=== PATIENT | female | born 1990 | race Caucasian/White ===

== ENCOUNTER 2023-09-13 08:32 | Inpatient (IN) ==
[2023-09-13 09:14] LABS: Basophils # (auto) 0.06 K/uL (0.00-0.20); Basophils % (auto) 0.9 %; Eosinophils # (auto) 0.78 K/uL (0.00-0.50); Eosinophils % (auto) 11.9 %; Hematocrit (blood only) 41.1 % (37.0-47.0); Hemoglobin 13.4 g/dl (12.0-16.0); Immature Granulocytes # (auto) 0.02 K/uL (0.01-0.20); Immature Granulocytes % (auto) 0.3 %; Lymphocytes # (auto) 1.52 K/uL (1.20-3.40); Lymphocytes % (auto) 23.1 %; Mean Corpuscular Hemoglobin 28.3 pg (25.0-34.0); Mean Corpuscular Hgb Conc 32.6 g/dL (32.0-36.0); Mean Corpuscular Volume 86.9 fL (80.0-100.0); Mean Platelet Volume 9.9 fL (9.4-12.4); Monocytes # (auto) 0.47 K/uL (0.11-0.59); Monocytes % (auto) 7.2 %; Neutrophils # (auto) 3.72 K/uL (1.40-6.50); Neutrophils % (auto) 56.6 %; Platelet Count 213 K/uL (130-400); RDW Coefficient of Variation 13.2 % (11.5-14.5); Red Blood Count 4.73 M/uL (4.20-5.40); White Blood Count 6.57 K/ul (4.8-10.8)
--- NOTE | 2023-09-13 09:16 | XRay Report ---
XR chest 1V portable HISTORY: 33 years-old Female Chest pain, nonspecific COMPARISON: None TECHNIQUE: AP view of the chest FINDINGS: Right apical pneumothorax with pleural separation of 2.6 cm. Cardiomediastinal and hilar silhouettes are within normal limits. No pleural effusion, airspace consolidation or pulmonary edema. The bones a ppear grossly intact. IMPRESSION: Right apical pneumothorax demonstrates pleural separation of 2.6 cm. ACT 112: Negative or not required by law. The above report was generated using voice recognition software. It may contain grammatical, syntax o r spelling errors. Electronically signed by: Neri Brock M.D. 09/13/2023 9:15 AM
[2023-09-13 09:30] LABS: Alanine Aminotransferase 5 U/L (7-52); Albumin Globulin Ratio 1.4 (0.9-2); Albumin Level 4.3 gm/dl (3.4-5.0); Alkaline Phosphatase 39 U/L (34-104); Anion Gap 5 (3-11); Aspartate Aminotransferase 16 U/L (13-39); BUN Creatinine Ratio 11.8 (10-20); Bilirubin,Total 0.6 mg/dl (0.2-1.0); Blood Urea Nitrogen 8 mg/dl (6-23); Calcium 9.2 mg/dl (8.6-10.3); Carbon Dioxide 28 mmol/L (21-32); Chloride 104 mmol/L (98-107); Creatinine Clr Calc Pharmacy 99.9 ml/min; Est GFR (African American) 132.3 ml/min; Est GFR (Non-African American) 114.1 ml/min; Globulin 3.1 gm/dl (2.5-4.0); Glucose 93 mg/dl (70-99(Fasting)); Lipase 19 U/L (11-82); Potassium 4.3 mmol/L (3.5-5.1); Sodium 137 mmol/L (136-145); Total Protein 7.4 gm/dl (6.0-8.3)
[2023-09-13 09:36] LABS: Troponin I High Sensitivity < 2.3 pg/ml (0-14)
--- NOTE | 2023-09-13 10:06 | Emergency Department Note ---
Impression & Plan Pneumothorax, right, S/P laparoscopic hysterectomy, Asthma, Endometriosis ED Provider Note NAME: RICA TANNER AGE: 33 SEX: F : 1990 ARRIVES VIA: Walk-In INFORMANT: Patient, ED PROVIDER(S): Girma Ayala MD CHIEF COMPLAINT: Right-sided chest pain HPI: This is a 33-year-old female history of asthma, endometriosis presenting for right chest pain. Patient notes that this pain is worse with deep inspiration. There is no dyspnea or shortness of breath noted. She notes that she recently had a hysterectomy on Sunday, 4 days ago. She notes that she had an IV in her right arm and it was now bruising. Because of the pain with deep this patient she was concerned for a blood clotting. She notes that he has a right breast cyst which to this pain feels significantly different from. She has no nausea, vomiting, diarrhea, fever, chills. ROS: See above HPI for pertinent positives & negatives. A total of 10 systems reviewed and were otherwise negative. PHYSICAL EXAMINATION: General: resting comfortably in no acute distress Head: Normocephalic and atraumatic Eyes: Normal inspection, extraocular muscles intact Ear, nose, throat: Normal external exam Neck: Normal range of motion Respiratory: lungs clear to auscultation bilaterally Cardiovascular: Regular rate/rhythm, no murmur GI: soft, nontender, no guarding or rebound Extremities: nontender, moves all extremities Neuro: The patient awake and alert, appropriately conversive, no focal deficits, symmetric faces Skin: Warm, dry, and intact MEDICAL DECISION MAKING: This is a 33-year-old female with history of asthma and endometriosis senting for right-sided chest pain. Recent surgery, hysterectomy. -Chest x-ray independent interpreted by me as a right apical pneumothorax, small, without pleural effusion or focal opacity -Discussed care with Dr. Machado, ICU/pulmonology, who recommends 6 hours observation with oxygen for repeat chest x-ray; based on size of pneumothorax and clinical stability with reassuring vital signs and lack of shortness of breath/hypoxia. -At this time she is resting comfortably, updated patient and about plan who are comfortable with this. patient on nonrebreather -After 6 hours, chest x-ray repeated which x-ray shows moderate worsening of the pneumothorax. Now about 3 cm. Discussed case again with Dr. Machado, who will help assist with apical approach to chest tube. -Discussed risk/benefits of conscious sedation with the patient was acceptable for ketamine use. Mallampati 1, ASA 1. -Patient given 60 mg of ketamine for sedation. Apical chest tube was done by Dr. Machado, please see his note for further details of procedure. Procedure: Procedural Sedation Indication pneumothorax, chest tube Total time: 20 minutes. Written consent was obtained after the risks and benefits were explained to the the patient and , including, but not limited to aspiration, allergic reaction, breathing difficulties, cardiac complications, vomiting, pain, event recall, bleeding, and/or infection. Pre-sedation examination and paperwork completed. The patient was on 100% oxygen via NRB prior to the procedure. Continous end tidal CO2 monitoring, pulse oximetry, and cardiac monitoring were utilized. Suction, airway equipment, medications, respiratory equipment, and appropriate personnel were prepared prior to the initiation of the procedure. A time out was taken. Sedation was achieved utilizing 60 mg of ketamine. After I observed the patient had reached the appropriate level of sedation the main procedure was performed without complication. Sedation was discontinued and the monitoring continued. The patient recovered quickly from the effects of the medication without complication or adverse event. Differential diagnosis: ACS, PE, pneumothorax, pneumonia ER treatment provided: See below Diagnostics interpreted by me: ECG: ECG independently interpreted by me with normal sinus rhythm, rate of 75, normal axis, normal [place], normal QRS, normal QTc, no ST segment elevations consistent with STEMI criteria Cardiac Monitoring: An order was placed for continuous cardiac monitoring. The monitor shows a rate of 75 with sinus rhythm. Laboratory studies: As stated above and show below. Imaging studies: See below. Past Med/Surg History Medical History (Updated 09/15/23 @ 12:13 by Girma Ayala MD) Allergic asthma Fibroid uterus Encounter for pre-operative examination Endometrioma of ovary Encounter for cosmetic procedure Pneumothorax, right Mass of right ovary Asthma Surgical History (Updated 09/15/23 @ 12:13 by Girma Ayala MD) Hx of laparoscopy Operative laparoscopy, Laparoscopic myomectomy, Bilateral ovarian cystectomy, Extensive lysis of adhesions, Excision and ablation of endometriosis Status post laser ablation of incompetent vein Family History Grandmother (Paternal) Diabetes Social History Smoking Status: Unknown if ever smoked Second Hand Exposure: No; Do You Dip or Chew Tobacco: No; Hx Alcohol Use: Yes Alcohol type: beer, wine and hard liquor Hx Substance Use: No Preferred Language: Stateless Communication Ability: Effective Senior Communications Engineer Required: No Beliefs That Will Affect Care: None Current Living Situation: Spouse Feels Safe at Home: Yes Assistive Devices: None Allergies Allergies Allergy/AdvReac Type Severity Reaction Status Date / Time No Known Allergies Allergy Verified 09/13/23 11:56 Home Meds Home Medications Medication Instructions Recorded Confirmed albuterol sulfate 90 mcg/actuation 2 puff inhalation QID PRN 08/25/19 09/13/23 aerosol inhaler Shortness Of Breath Or Wheezing cetirizine 10 mg tablet (Zyrtec) 10 mg PO DAILY PRN Congestion 08/24/23 09/13/23 multivitamin 1 tab PO DAILY 09/10/23 09/13/23 fluticasone propionate 50 1 spray intranasal DAILY 09/13/23 09/13/23 mcg/actuation nasal spray,suspension Previous Rx's Medication Instructions Recorded oxycodone-acetaminophen 5 mg-325 1 tab PO Q4H PRN pain #14 tabs 09/10/23 mg tablet (Percocet) Results & Data (ED) Vital Signs Vital Signs - 24 hr 09/13/23 08:34 09/13/23 09:10 09/13/23 09:15 Temperature 36.9 C Temperature Source Temporal Artery Scan Pulse Rate 97 H 70 70 Pulse Rhythm Regular Respiratory Rate 20 12 Blood Pressure 171/105 H Blood Pressure Mean 127 Pulse Oximetry 100 99 Oxygen Delivery Method Room Air Room Air Oxygen Flow Rate Sepsis Recent Fever Within 48 Hours No Sepsis New/Unexplained Change in Mental Status N/A Sepsis Action Taken by Nursing No Action Required Oxygen Flow Rate - Titration Pulse Oximetry Post Tiitration 09/13/23 09:16 09/13/23 10:23 09/13/23 11:31 Temperature Temperature Source Pulse Rate 63 63 Pulse Rhythm Respiratory Rate 19 18 Blood Pressure 139/96 139/93 Blood Pressure Mean 110 108 Pulse Oximetry 99 100 100 Oxygen Delivery Method Non-rebreather Non-rebreather Oxygen Flow Rate 0 15 15 Sepsis Recent Fever Within 48 Hours Sepsis New/Unexplained Change in Mental Status Sepsis Action Taken by Nursing Oxygen Flow Rate - Titration 15 Pulse Oximetry Post Tiitration 99 09/13/23 12:00 09/13/23 12:30 09/13/23 13:00 Temperature Temperature Source Pulse Rate 60 64 71 Pulse Rhythm Respiratory Rate 19 17 15 Blood Pressure 135/86 144/91 H 139/95 Blood Pressure Mean 104 108 109 Pulse Oximetry 100 100 100 Oxygen Delivery Method Non-rebreather Non-rebreather Non-rebreather Oxygen Flow Rate 15 15 Sepsis Recent Fever Within 48 Hours Sepsis New/Unexplained Change in Mental Status Sepsis Action Taken by Nursing Oxygen Flow Rate - Titration Pulse Oximetry Post Tiitration 09/13/23 13:25 09/13/23 13:30 09/13/23 14:00 Temperature Temperature Source Pulse Rate 63 61 61 Pulse Rhythm Respiratory Rate 20 14 Blood Pressure 144/96 H 141/94 H Blood Pressure Mean 112 109 Pulse Oximetry 100 100 Oxygen Delivery Method Non-rebreather Non-rebreather Oxygen Flow Rate 15 15 Sepsis Recent Fever Within 48 Hours Sepsis New/Unexplained Change in Mental Status Sepsis Action Taken by Nursing Oxygen Flow Rate - Titration Pulse Oximetry Post Tiitration 09/13/23 14:30 Temperature Temperature Source Pulse Rate 66 Pulse Rhythm Respiratory Rate 14 Blood Pressure 142/101 H Blood Pressure Mean 114 Pulse Oximetry 100 Oxygen Delivery Method Non-rebreather Oxygen Flow Rate Sepsis Recent Fever Within 48 Hours Sepsis New/Unexplained Change in Mental Status Sepsis Action Taken by Nursing Oxygen Flow Rate - Titration Pulse Oximetry Post Tiitration Laboratory Data 09/14/23 06:03 09/14/23 06:03 Lab Results 09/13/23 Range/Units 08:48 WBC 6.57 (4.8-10.8) K/ul RBC 4.73 (4.20-5.40) M/uL Hgb 13.4 (12.0-16.0) g/dl Hct 41.1 (37.0-47.0) % MCV 86.9 (80.0-100.0) fL MCH 28.3 (25.0-34.0) pg MCHC 32.6 (32.0-36.0) g/dL RDW Std Deviation 42.0 (36.4-46.3) fL RDW Coeff of Jayla 13.2 (11.5-14.5) % Plt Count 213 (130-400) K/uL MPV 9.9 (9.4-12.4) fL Immature Gran % (Auto) 0.3 % Neut % (Auto) 56.6 % Lymph % (Auto) 23.1 % [place] % (Auto) 7.2 % Eos % (Auto) 11.9 % Baso % (Auto) 0.9 % Neut # (Auto) 3.72 (1.40-6.50) K/uL Lymph # (Auto) 1.52 (1.20-3.40) K/uL [place] # (Auto) 0.47 (0.11-0.59) K/uL Eos # (Auto) 0.78 H (0.00-0.50) K/uL Baso # (Auto) 0.06 (0.00-0.20) K/uL Immature Gran # (Auto) 0.02 (0.01-0.20) K/uL Sodium 137 (136-145) mmol/L Potassium 4.3 (3.5-5.1) mmol/L Chloride 104 (98-107) mmol/L Carbon Dioxide 28 (21-32) mmol/L Anion Gap 5 (3-11) BUN 8 (6-23) mg/dl Creatinine 0.68 (0.6-1.2) mg/dl Est Cr Clr Drug Dosing 99.9 ml/min Est GFR ( Amer) 132.3 ml/min Est GFR (Non-Af Amer) 114.1 ml/min BUN/Creatinine Ratio 11.8 (10-20) Glucose 93 (70-99(Fasting)) mg/dl Calcium 9.2 (8.6-10.3) mg/dl Total Bilirubin 0.6 (0.2-1.0) mg/dl AST 16 (13-39) U/L ALT 5 L (7-52) U/L Alkaline Phosphatase 39 (34-104) U/L Troponin I High Sens < 2.3 (0-14) pg/ml Total Protein 7.4 (6.0-8.3) gm/dl Albumin 4.3 (3.4-5.0) gm/dl Globulin 3.1 (2.5-4.0) gm/dl Albumin/Globulin Ratio 1.4 (0.9-2) Lipase 19 (11-82) U/L Administered Medications Discontinued Medications Enoxaparin Sodium (Enoxaparin Inj 40 Mg/0.4 Ml Syr) 40 mg SQ Q24H LEATHA Stop: 10/14/23 09:29 Last Admin: 09/14/23 10:00 Dose: 40 mg Documented By: JAZLYN Ketamine HCl 80 mg/ Syringe 9.6 mls @ 9.6 mls/min IV NOW ONE Stop: 09/13/23 16:01 Last Admin: 09/13/23 16:24 Dose: 9.6 mls/min Documented By: [id number] Ibuprofen (Ibuprofen 200 Mg Tab) 400 mg PO Q4H PRN PRN Reason: Mild-Mod Pain (Scale 1-6) Stop: 10/13/23 16:50 Last Admin: 09/13/23 17:21 Dose: 400 mg Documented By: SHRAVAN Ibuprofen (Ibuprofen 200 Mg Tab) 400 mg PO Q4H PRN PRN Reason: Mild Pain (Scale 1, 2, 3) Stop: 10/13/23 16:50 Last Admin: 09/14/23 08:28 Dose: 400 mg Documented By: JAZLYN Miscellaneous (Stat Iv/Im) 1 each N/A NOW STA Stop: 09/13/23 15:56 Last Admin: 09/13/23 18:36 Dose: Not Given Documented By: SHRAVAN Morphine Sulfate (Morphine Sulfate 2 Mg/Ml Carp) 2 mg IV NOW STA Stop: 09/13/23 18:37 Last Admin: 09/13/23 18:50 Dose: 2 mg Documented By: SHRAVAN Oxycodone HCl (Oxycodone Hcl Ir 5 Mg Tab (Immediate Release)) 5 mg PO Q4H PRN PRN Reason: Severe Pain (Scale 7, 8, 9,10) Stop: 09/27/23 16:50 Last Admin: 09/13/23 17:32 Dose: 5 mg Documented By: SHRAVAN Oxycodone HCl (Oxycodone Hcl Ir 5 Mg Tab (Immediate Release)) 5 mg PO Q4H PRN PRN Reason: Moderate Pain (Scale 4, 5, 6) Stop: 09/27/23 16:50 Last Admin: 09/14/23 09:11 Dose: 5 mg Documented By: Admin: 05/02/24 22:25 Dose: 5 mg Documented By: [facility] Imaging Data Radiologist's Impression: Chest X-Ray 09/13/23 08:41 XR chest 1V portable HISTORY: 33 years-old Female Chest pain, nonspecific COMPARISON: None TECHNIQUE: AP view of the chest FINDINGS: Right apical pneumothorax with pleural separation of 2.6 cm. Cardiomediastinal and hilar silhouettes are within normal limits. No pleural effusion, airspace consolidation or pulmonary edema. The bones appear grossly intact. IMPRESSION: Right apical pneumothorax demonstrates pleural separation of 2.6 cm. ACT 112: Negative or not required by law. The above report was generated using voice recognition software. It may contain grammatical, syntax or spelling errors. Electronically signed by: Neri Brock M.D. 09/13/2023 9:15 AM Chest X-Ray 09/13/23 14:58 SINGLE VIEW CHEST CLINICAL HISTORY: Follow-up pneumothorax FINDINGS: An AP, portable, upright chest radiograph is compared to study performed earlier the same day 09/13/2023. The cardiomediastinal silhouette is unremarkable. There is no airspace consolidation or pleural effusion. Again seen is a right apical pneumothorax. This has modestly increased in size from today's earlier examination with approximately 3 cm of apical pleural separation. No pneumothorax is seen on the left. The bony thorax is grossly intact. IMPRESSION: Again seen is a right apical pneumothorax. This has modestly increased in size as compared to today's earlier study. See above. ACT 112: Negative or not required by law. Electronically signed by: Nehemiah Shay M.D. 09/13/2023 3:20 PM Discharge Plan Visit Data Chief Complaint: Chest Pain Stated Complaint: POSSIBLE BLOOD CLOT/INFECTION OF IV SIGHT, CHEST P ED Provider: Girma Ayala Discharge Problem: Pneumothorax, right, S/P laparoscopic hysterectomy, Asthma, Endometriosis Patient Disposition: Admitted As Inpatient Discharge Instructions Interventions: ED Discharge Assessment Last Done: 09/13/23 20:57
--- NOTE | 2023-09-13 15:21 | XRay Report ---
SINGLE VIEW CHEST CLINICAL HISTORY: Follow-up pneumothorax FINDINGS: An AP, portable, upright chest radiograph is compared to study performed earlier the same d ay 09/13/2023. The cardiomediastinal silhouette is unremarkable. There is no airspace consolidation or pleural effusion. Again seen is a right apical pneumothorax. This has modestly increased in size from today's earlier examination with approximately 3 cm of apical pleural separation. No pneumothorax is seen on the left. The bony thorax is grossly intact. IMPRESSION: Again seen is a right apical pneumothorax. This has modestly increased in size as compare d to today's earlier study. See above. ACT 112: Negative or not required by law. Electronically signed by: Nehemiah Shay M.D. 09/13/2023 3:20 PM
[2023-09-13] MEDS: KETAMINE HCL IV ONE (16:24)
--- NOTE | 2023-09-13 17:00 | Pulmonary Consultation ---
Date of Consultation September 13, 2023 Assessment & Plan (1) Pneumothorax, right: (2) Endometriosis: Plan 33-year-old female with reported history of asthma and endometriosis status post hysterectomy and bilateral salpingo-oophorectomy 09/10/2023 who presents to the ER today due to right-sided chest pain. She was found to have an expanding apical pneumothorax measuring about 2.9 cm I had a lengthy discussion with the patient and her at bedside. We discussed the nature of her pneumothorax and the fact that it expanding despite nonrebreather and repeat x-ray. We discussed risks and benefits of chest tube placement and she was willing to proceed with placement of an apical chest tube on the right. Will follow-up on chest x-ray post chest tube placement to ensure adequacy of placement. Will place the chest tube to waterseal and monitor overnight. Will consider placing chest tube to suction if persistent pneumothorax is seen. I have placed as needed pain medications including ibuprofen for mild pain and oxycodone for more severe pain. Etiology of pneumothorax somewhat unclear, but may be related to positive pressure ventilation and her history of asthma. Other possibility includes thoracic endometriosis. She does report a longstanding history of intermittent right-sided chest pain and clearly has had extensive abdominal endometriosis. Will consider CT chest to evaluate for endometriosis in the thoracic cavity and also to evaluate for congenital blebs or emphysematous change. Appreciate Dr. Ayala's assistance during the chest tube placement with administering ketamine for sedation and monitoring vital signs. Thank you for the consult. I will continue to follow while she remains in the hospital History of Present Illness Reason for Consultation: Right apical pneumothorax History of Present Illness 33-year-old female with a history of endometriosis who underwent hysterectomy and bilateral salpingo-oophorectomy 09/10/2023 comes into the ER today due to ongoing shortness of breath and chest discomfort on the right side of her chest. She notes that the pain seems to have started about yesterday afternoon. It became progressively worse and ultimately she came to the ER. Chest x-ray in the ER revealed a 2.5 cm pneumothorax on repeat chest x-ray approximately 5 hours later revealed expansion of pneumothorax to about 2.9 cm. Patient is a lifelong non-smoker. She denies any recent trauma or injury. She does note that she was intubated and mechanically ventilated for her procedure on 09 September. She denies any prior history of pneumothorax. She does note a history of asthma and intermittent right-sided chest pain over several years. We had a lengthy discussion regarding options for the right apical pneumothorax including tube thoracostomy versus repeat chest x-ray. Patient understood the risks and benefits of tube thoracostomy and wished to proceed. Right-sided 8 [place] apical pneumothorax catheter was placed without issue at bedside in the ER. Allergies Allergy/AdvReac Type Severity Reaction Status Date / Time No Known Allergies Allergy Verified 09/13/23 11:56 Home Medications Medication Instructions Recorded Confirmed Type albuterol sulfate 90 mcg/actuation 2 puff inhalation QID PRN 08/25/19 09/13/23 History aerosol inhaler Shortness Of Breath Or Wheezing cetirizine 10 mg tablet (Zyrtec) 10 mg PO DAILY PRN Congestion 08/24/23 09/13/23 History multivitamin 1 tab PO DAILY 09/10/23 09/13/23 History oxycodone-acetaminophen 5 mg-325 1 tab PO Q4H PRN pain #14 tabs 09/10/23 09/13/23 Rx mg tablet (Percocet) fluticasone propionate 50 1 spray intranasal DAILY 09/13/23 09/13/23 History mcg/actuation nasal spray,suspension Patient History Medical History (Updated 09/13/23 @ 16:56 by Ariel Machado MD) Pneumothorax, right Mass of right ovary Asthma Surgical History Hx of laparoscopy Operative laparoscopy, Laparoscopic myomectomy, Bilateral ovarian cystectomy, Extensive lysis of adhesions, Excision and ablation of endometriosis Status post laser ablation of incompetent vein Family History Grandmother (Paternal) Diabetes Social History Smoking Status: Never smoker Second Hand Exposure: No; Do You Dip or Chew Tobacco: No; Hx Alcohol Use: Yes Alcohol type: beer, wine and hard liquor Hx Substance Use: No Preferred Language: Portuguese Communication Ability: Effective Coupon Redemption Clerk Required: No Beliefs That Will Affect Care: None Current Living Situation: Spouse Feels Safe at Home: Yes Assistive Devices: Glasses Review of Systems Review of Systems: All systems reviewed & are unremarkable except as noted in HPI & below Physical Exam Physical Exam: Constitutional: Patient appears to be of their stated age. Patient is in no apparent distress. Patient is well-developed. Eyes: Pupils are equal round and reactive to light. Conjunctivae are normal. Anicteric sclera. Ears nose, mouth and throat: Mallampati class 1. Normal posterior oropharynx. Uvula is midline. Neck: Trachea is midline. Visual inspection is normal. Respiratory: Clear to auscultation bilaterally. No use of accessory muscles. No significant clubbing noted. Cardiovascular: Regular rate and rhythm. No murmurs. No edema. Gastrointestinal: Normal bowel sounds, soft, nontender and nondistended. No hepatosplenomegaly noted. Musculoskeletal: No cyanosis. Patient is able to move all extremities. Strength is 5 out of 5 in the upper and lower extremities. Skin: No rashes, warm dry and intact. Neurologic: No obvious focal neurological deficits seen. Psychiatric: Alert and oriented x3 with a euthymic affect. Results & Data Results & Data Vital Signs (Past 12 Hours) Vital Signs Temp Pulse Resp BP Pulse Ox O2 Del Method O2 Flow Rate 09/13/23 14:30 66 14 142/101 H 100 Non-rebreather 09/13/23 14:00 61 14 141/94 H 100 Non-rebreather 15 09/13/23 13:30 61 20 144/96 H 100 Non-rebreather 15 09/13/23 13:25 63 09/13/23 13:00 71 15 139/95 100 Non-rebreather 09/13/23 12:30 64 17 144/91 H 100 Non-rebreather 15 09/13/23 12:00 60 19 135/86 100 Non-rebreather 15 09/13/23 11:31 63 18 139/93 100 Non-rebreather 15 09/13/23 10:23 63 19 139/96 100 Non-rebreather 15 09/13/23 09:16 99 0 09/13/23 09:15 70 09/13/23 09:10 70 12 99 Room Air 09/13/23 08:34 36.9 C 97 H 20 171/105 H 100 Room Air PG Care Time/CCT Total # of Minutes Spent Total Time Spent with Patient: Total time spent is greater than 50% in coordination of care (as documented) at patient's floor/unit and/or counseling patient: Coding Level of Care Code 32513 IN/OBS CONSULT LVL 4,60M Diagnoses Pneumothorax, right J93.9 Endometriosis N80.9
--- NOTE | 2023-09-13 17:04 | Procedure Note ---
Procedure Note Date of Service September 13, 2023 Note Right apical pneumothorax catheter placement: Procedure: Right apical pneumothorax catheter placed Indication: Right apical pneumothorax Anesthesia: 8 mL lidocaine 1% Written consent was obtained and placed on the chart. Timeout was done prior to the procedure. Ketamine was utilized for sedation and provided by the ER physician, Dr. Ayala. See his note for separate charting regarding sedation. Prior to procedure, chest x-ray films were reviewed by myself and demonstrated right apical pneumothorax. Pleural ultrasound also revealed a distinct lung point at the second intercostal space. A time-out was completed verifying corre ct patient, procedure, site, positioning, and implant(s) or special equipment if applicable. Utilizing bedside ultrasound, chest wall was evaluated for location for optimal chest tube placement. Location between the first and second ribs were marked on the skin using gentle pressure. The right sided chest wall was prepped with chlorhexidine and draped in the typical sterile fashion. 8 mL of 1% Lidocaine without epinephrine was used to anesthetize the skin down to the dorsal surface of the first rib. Air return confirmed entry into the pleural space. Lidocaine was injected into the pleural space for increased anesthetization. Scalpel was used to make small incision of the superficial tissue, parallel to the direction of the rib anatomy. The catheter over the needle apparatus was inserted via the incision site and air was aspirated using a syringe attached to the apparatus. Once air was identified, the catheter was advanced over the needle. The catheter was then attached to extension tubing which was then further attached to a Pleur-evac with waterseal. Grade 1 airleak was noted intermittently with coughing which then spontaneously resolved. The catheter was sutured to the skin with 2-0 silk sutures. The patient tolerated procedure well. Postprocedure chest x-ray is pending. Blood Loss: Minimal Complications: None Coding CPT Codes Pulmonary/Thoracic - Pulmonary and Thoracic: 55665 Tube thoracostomy ([id number]) Pulmonary/Thoracic - Pulmonary and Thoracic: 26647 US, Chest, real time with imaging documentation ([id number]) [facility] [place] [facility] [place] Codes (Charges) Pulmonary/Thoracic Procedure 1: Pulmonary and Thoracic: 37180 Tube thoracostomy Procedure 2: Pulmonary and Thoracic: 72447 US, Chest, real time with imaging documentation
[2023-09-13] MEDS: IBUPROFEN 200 MG TAB PO PRN (17:21)
[2023-09-13] MEDS: oxyCODONE HCL IR 5 MG TAB (IMMEDIATE RELEASE) PO PRN ×2 (17:32→22:25)
--- NOTE | 2023-09-13 17:47 | XRay Report ---
XR chest 1V portable HISTORY: s/p right apical chest tube COMPARISON: Chest 09/13/2023. FINDINGS: Interval placement of a right apical chest tube. The right pneumothorax is similar in size with a pleural gap of 3.6 cm. No pleural effusions. The lungs are clear. The heart is normal in size. No significant mediastinal shift. No acute fractures. IMPRESSION: Status post placement of a right apical chest tube. The right pneumothorax is similar to the prior st udy. ACT 112: Negative or not required by law. Electronically signed by: Anand Manzano M.D. 09/13/2023 5:45 PM
[2023-09-13] MEDS: STAT IV/IM STA (18:36)
[2023-09-13] MEDS: MoRPHine SULFATE 2 MG/ML CARP IV STA (18:50)
--- NOTE | 2023-09-13 18:54 | History & Physical Report ---
Date of Service September 13, 2023 Assessment & Plan (1) Pneumothorax, right: Plan: Bita Hernandez is a 33y/o F with PMHx of allergic sinusitis, endometriosis and asthma who presented to the ED for evaluation of right-sided chest pain. In ED, patient was found to have right apical pneumothorax measuring 2.6cm on chest x-ray. Dr. Ayala in the ED discussed this case with Dr. Machado (ICU/pulmonology), and it was decided that a repeat chest x-ray would be done after 6 hours of observation w/ oxygen therapy. Ultimately, after the 6 hours of observation in the ED, repeat chest x-ray revealed a modest increase of the right apical pneumothorax to approximately 3cm and the decision to place a chest tube was made by Dr. Machado. -Patient was discussed with Dr. Machado on how to manage her increased right- sided thoracic pain s/p chest tube placement. -PRN IV morphine 2mg Q4H for severe pain -PRN oxycodone for moderate pain -PRN ibuprofen for mild pain -Chest tube monitoring protocol per Dr. Machado. -Repeat chest x-ray in AM (2) Asthma: Plan: -Chronic, stable -No acute exacerbation, continue PRN inhaler. (3) S/P laparoscopic hysterectomy: (4) Endometriosis: Plan: Patient recently underwent laparoscopic hysterectomy and bilateral salpingectomy on 09/10/23, which was performed by Dr. Hyman. -Dr. Machado spoke with Dr. Hyman to make him aware of situation, no consult required at this time. -Will continue to monitor DVT Prophylaxis: SCDs Code Status: Full Code PCP: Shara Steward MD Dispo: Admit to PCU Patient seen in collaboration with Dr. Hubbard. Please see addendum. I spent a total of 75 minutes coordinating, documenting, and providing care for this patient excluding time spent in the performance of separately billed services. This included personally reviewing all current laboratories and imaging studies, medical reconciliation, outpatient chart review and discussion with specialists. History of Present Illness Chief Complaint: Right-Sided Chest Pain Primary Care Provider: Shara Steward MD Bita Hernandez is a 33y/o F with PMHx of allergic sinusitis, endometriosis and asthma who presented to the ED for evaluation of right-sided chest pain. History obtained from the patient and previous PCP/STUDENT SERVICES REPRESENTATIVE records. Patient recently underwent laparoscopic hysterectomy and bilateral salpingectomy on 09/10/23, which was performed by Dr. Hyman. Patient states that she started to experience intermittent right-sided chest pain yesterday, which she describes as sharp/stabbing. Patient also mentions that the chest pain worsened with exertion, and was alleviated with rest and lying down yesterday. However, she states that the chest pain was worse whilst attempting to lie down this morning, and the increase in that pain is what prompted her to come to the ED in order to be seen. In ED, patient was found to have right apical pneumothorax measuring 2.6cm on chest x-ray. Dr. Ayala in the ED discussed this case with Dr. Machado (ICU/pulmonology), and it was decided that a repeat chest x-ray would be done after 6 hours of observation w/ oxygen therapy. Ultimately, after the 6 hours of observation in the ED, repeat chest x-ray revealed a modest increase of the right apical pneumothorax to approximately 3cm and the decision to place a chest tube was made by Dr. Machado. Patient was seen at bedside s/p chest tube placement. Patient states that she is currently "in a lot of pain," specifically focusing on her entire right thoracic region. Patient currently rates her pain 8/10. Patient mentions that she was given oxycodone 5mg after the chest tube was placed w/ no relief. She also endorses some SOB, which she did not experience prior to chest tube placement. Patient denies any abdominal pain, abnormal vaginal bleeding or concerning changes with her surgical sites from the laparoscopic hysterectomy and bilateral salpingectomy performed 3 days ago. Patient denies any N/V, bowel changes, urinary issues or recent fevers. Allergies Allergy/AdvReac Type Severity Reaction Status Date / Time No Known Allergies Allergy Verified 09/13/23 11:56 Home Medications Medication Instructions Recorded Confirmed Type albuterol sulfate 90 mcg/actuation 2 puff inhalation QID PRN 08/25/19 09/13/23 History aerosol inhaler Shortness Of Breath Or Wheezing cetirizine 10 mg tablet (Zyrtec) 10 mg PO DAILY PRN Congestion 08/24/23 09/13/23 History multivitamin 1 tab PO DAILY 09/10/23 09/13/23 History oxycodone-acetaminophen 5 mg-325 1 tab PO Q4H PRN pain #14 tabs 09/10/23 09/13/23 Rx mg tablet (Percocet) fluticasone propionate 50 1 spray intranasal DAILY 09/13/23 09/13/23 History mcg/actuation nasal spray,suspension Past Med/Surg History Medical History Fibroid uterus Encounter for pre-operative examination Endometrioma of ovary Encounter for cosmetic procedure Pneumothorax, right Mass of right ovary Asthma Surgical History Hx of laparoscopy Operative laparoscopy, Laparoscopic myomectomy, Bilateral ovarian cystectomy, Extensive lysis of adhesions, Excision and ablation of endometriosis Status post laser ablation of incompetent vein Family History Grandmother (Paternal) Diabetes Social History Smoking Status: Never smoker Second Hand Exposure: No; Do You Dip or Chew Tobacco: No; Hx Alcohol Use: Yes Alcohol type: beer, wine and hard liquor Hx Substance Use: No Preferred Language: Polish Communication Ability: Effective Licensed Surveyor Required: No Beliefs That Will Affect Care: None Current Living Situation: Spouse Feels Safe at Home: Yes Assistive Devices: Glasses Review of Systems Review of Systems: At least ten systems reviewed and negative, except as noted in the HPI. Physical Exam Physical Exam: General Appearance: Patient sitting up in bed, appears generally uncomfortable. No acute distress. No conversational dyspnea. Head: Normocephalic, atraumatic. Eyes: Normal inspection, PERRL, conjunctivae normal, anicteric sclerae. ENT: External ear and nose normal, oropharynx normal. Neck: Normal visual inspection, trachea midline, no thyromegaly. Respiratory: Lungs clear to auscultation, no wheezing. No accessory muscle use. Cardiovascular: Regular rate, rhythm, no murmur, normal peripheral pulses, no BLE edema. Chest: Right apical chest tube in place, connected to suction; overlying bandage is in place. Abdomen/GI: Normal bowel sounds, soft, nontender, no hepatosplenomegaly. Extremities/Musculoskeletal: No cyanosis or clubbing, moves all extremities. Neurologic: No face palsy, no dysarthria. No focal deficits, patient conversing appropriately. Psychiatric: A+Ox3, euthymic affect. Skin: No rashes, normal color, warm/dry. Laparoscopic surgical sites from recent [employer]UD[employer] SERVICES REPRESENTATIVE surgery, described above, appear healthy. No surrounding erythema or discharge present at any of the sites. Results & Data Results & Data Vital Signs (Past 12 Hours) Vital Signs Temp Pulse Resp BP Pulse Ox O2 Del Method O2 Flow Rate 09/13/23 17:22 65 09/13/23 14:30 66 14 142/101 H 100 Non-rebreather 09/13/23 14:00 61 14 141/94 H 100 Non-rebreather 15 09/13/23 13:30 61 20 144/96 H 100 Non-rebreather 15 09/13/23 13:25 63 09/13/23 13:00 71 15 139/95 100 Non-rebreather 09/13/23 12:30 64 17 144/91 H 100 Non-rebreather 15 09/13/23 12:00 60 19 135/86 100 Non-rebreather 15 09/13/23 11:31 63 18 139/93 100 Non-rebreather 15 09/13/23 10:23 63 19 139/96 100 Non-rebreather 15 09/13/23 09:16 99 0 09/13/23 09:15 70 09/13/23 09:10 70 12 99 Room Air 09/13/23 08:34 36.9 C 97 H 20 171/105 H 100 Room Air Laboratory Results Short CBC 09/13/23 Range/Units 08:48 WBC 6.57 (4.8-10.8) K/ul Hgb 13.4 (12.0-16.0) g/dl Hct 41.1 (37.0-47.0) % Plt Count 213 (130-400) K/uL BMP 09/13/23 08:48 Sodium 137 Potassium 4.3 Chloride 104 Carbon Dioxide 28 BUN 8 Creatinine 0.68 Glucose 93 Calcium 9.2 Liver Function 09/13/23 Range/Units 08:48 Total Bilirubin 0.6 (0.2-1.0) mg/dl AST 16 (13-39) U/L ALT 5 L (7-52) U/L Alkaline Phosphatase 39 (34-104) U/L Albumin 4.3 (3.4-5.0) gm/dl Diagnostic Findings Chest X-Ray 09/13/23 08:41 XR chest 1V portable HISTORY: 33 years-old Female Chest pain, nonspecific COMPARISON: None TECHNIQUE: AP view of the chest FINDINGS: Right apical pneumothorax with pleural separation of 2.6 cm. Cardiomediastinal and hilar silhouettes are within normal limits. No pleural effusion, airspace consolidation or pulmonary edema. The bones appear grossly intact. IMPRESSION: Right apical pneumothorax demonstrates pleural separation of 2.6 cm. ACT 112: Negative or not required by law. The above report was generated using voice recognition software. It may contain grammatical, syntax or spelling errors. Electronically signed by: Neri Brock M.D. 09/13/2023 9:15 AM Chest X-Ray 09/13/23 14:58 SINGLE VIEW CHEST CLINICAL HISTORY: Follow-up pneumothorax FINDINGS: An AP, portable, upright chest radiograph is compared to study performed earlier the same day 09/13/2023. The cardiomediastinal silhouette is unremarkable. There is no airspace consolidation or pleural effusion. Again seen is a right apical pneumothorax. This has modestly increased in size from today's earlier examination with approximately 3 cm of apical pleural separation. No pneumothorax is seen on the left. The bony thorax is grossly intact. IMPRESSION: Again seen is a right apical pneumothorax. This has modestly increased in size as compared to today's earlier study. See above. ACT 112: Negative or not required by law. Electronically signed by: Nehemiah Shay M.D. 09/13/2023 3:20 PM Chest X-Ray 09/13/23 16:50 XR chest 1V portable HISTORY: s/p right apical chest tube COMPARISON: Chest 09/13/2023. FINDINGS: Interval placement of a right apical chest tube. The right pneumothorax is similar in size with a pleural gap of 3.6 cm. No pleural effusions. The lungs are clear. The heart is normal in size. No significant mediastinal shift. No acute fractures. IMPRESSION: Status post placement of a right apical chest tube. The right pneumothorax is similar to the prior study. ACT 112: Negative or not required by law. Electronically signed by: Anand Manzano M.D. 09/13/2023 5:45 PM Chest X-Ray 09/13/23 18:01 XR chest 1V portable HISTORY: persistent ptx, now on suction COMPARISON: Chest 09/13/2023. FINDINGS: There is a right apical pleural catheter in place. Near-complete resolution of the right pneumothorax which demonstrates a maximal pleural gap of 2 mm. The lungs are clear. No mediastinal shift. The heart is normal in size. No pleural effusions. No rib fractures. IMPRESSION: 1. Near-complete resolution of the right apical pneumothorax which now demonstrates a maximal pleural gap of 2 mm. 2. A right apical chest tube is in place. ACT 112: Negative or not required by law. Electronically signed by: Anand Manzano M.D. 09/13/2023 7:02 PM Medications Administered Discontinued Medications Ketamine HCl 80 mg/ Syringe 9.6 mls @ 9.6 mls/min IV NOW ONE Stop: 09/13/23 16:01 Last Admin: 09/13/23 16:24 Dose: 9.6 mls/min Documented By: [id number] Ibuprofen (Ibuprofen 200 Mg Tab) 400 mg PO Q4H PRN PRN Reason: Mild-Mod Pain (Scale 1-6) Stop: 10/13/23 16:50 Last Admin: 09/13/23 17:21 Dose: 400 mg Documented By: SHRAVAN Miscellaneous (Stat Iv/Im) 1 each N/A NOW STA Stop: 09/13/23 15:56 Last Admin: 09/13/23 18:36 Dose: Not Given Documented By: SHRAVAN Morphine Sulfate (Morphine Sulfate 2 Mg/Ml Carp) 2 mg IV NOW STA Stop: 09/13/23 18:37 Last Admin: 09/13/23 18:50 Dose: 2 mg Documented By: SHRAVAN Oxycodone HCl (Oxycodone Hcl Ir 5 Mg Tab (Immediate Release)) 5 mg PO Q4H PRN PRN Reason: Severe Pain (Scale 7, 8, 9,10) Stop: 09/27/23 16:50 Last Admin: 09/13/23 17:32 Dose: 5 mg Documented By: SHRAVAN Code Status & VTE Plan Code Status FULL CODE VTE Prophylaxis Plan VTE Prophylaxis will be ordered: Yes Supervising Physician Co-Signing Physician Notes Patient was seen and examined independently at bedside. Chart reviewed. Case discussed with the PA-C and agree with the documentation above. In summary, this is a 33-year-old female with history of endometriosis who presented with right- sided pleuritic chest pain and found to have expanding apical pneumothorax measuring about 2.9 cm for which she underwent chest tube placement by pulmonary today. Postprocedural x-ray shows near complete resolution of right apical pneumothorax. Further management per pulmonology. Vital stable. Saturating well on room air. Awake alert oriented, conversing well, chest tube noted, heart sounds normal, abdomen benign, no lower extreme edema. Rest as per the note above. (2) Asthma Asthma complication type: unspecified Asthma persistence: unspecified Asthma severity: unspecified severity Qualified Code(s): J45.909 - Unspecified asthma, uncomplicated
--- NOTE | 2023-09-13 19:04 | XRay Report ---
XR chest 1V portable HISTORY: persistent ptx, now on suction COMPARISON: Chest 09/13/2023. FINDINGS: There is a right apical pleural catheter in place. Near-complete resolution of the right pn eumothorax which demonstrates a maximal pleural gap of 2 mm. The lungs are clear. No mediastinal shif t. The heart is normal in size. No pleural effusions. No rib fractures. IMPRESSION: 1. Near-complete resolution of the right apical pneumothorax which now demonstrates a maximal pleural gap of 2 mm. 2. A right apical chest tube is in place. ACT 112: Negative or not required by law. Electronically signed by: Anand Manzano M.D. 09/13/2023 7:02 PM
[2023-09-13] MEDS ORDERED: MoRPHine SULFATE 2 MG/ML CARP IV PRN (20:01)
[2023-09-14 07:28] LABS: Basophils # (auto) 0.05 K/uL (0.00-0.20); Basophils % (auto) 0.8 %; Eosinophils # (auto) 0.81 K/uL (0.00-0.50); Eosinophils % (auto) 13.6 %; Hematocrit (blood only) 36.6 % (37.0-47.0); Immature Granulocytes # (auto) 0.01 K/uL (0.01-0.20); Immature Granulocytes % (auto) 0.2 %; Lymphocytes # (auto) 1.49 K/uL (1.20-3.40); Mean Corpuscular Hemoglobin 28.3 pg (25.0-34.0); Mean Corpuscular Hgb Conc 32.8 g/dL (32.0-36.0); Mean Corpuscular Volume 86.3 fL (80.0-100.0); Monocytes % (auto) 8.4 %; Platelet Count 186 K/uL (130-400); RDW Coefficient of Variation 13.4 % (11.5-14.5); RDW Standard Deviation 41.7 fL (36.4-46.3); Red Blood Count 4.24 M/uL (4.20-5.40); White Blood Count 5.96 K/ul (4.8-10.8)
--- NOTE | 2023-09-14 07:56 | XRay Report ---
XR chest 1V portable HISTORY: Chest tube . Follow-up pneumothorax. COMPARISON: Chest 09/13/2023. FINDINGS: Right apical chest tube is unchanged in position. The tiny right apical pneumothorax persis ts. This demonstrates a maximal pleural gap of 2 mm. The lungs are clear. No mediastinal shift. The h eart is normal in size. IMPRESSION: Stable tiny right apical pneumothorax. A right-sided chest tube is unchanged in position. ACT 112: Negative or not required by law. Electronically signed by: Anand Manzano M.D. 09/14/2023 7:54 AM
[2023-09-14 07:57] LABS: Albumin Globulin Ratio 1.5 (0.9-2); Albumin Level 3.8 gm/dl (3.4-5.0); BUN Creatinine Ratio 17.9 (10-20); Bilirubin,Total 0.5 mg/dl (0.2-1.0); Calcium 8.4 mg/dl (8.6-10.3); Creatinine Clr Calc Pharmacy 123.6 ml/min; Est GFR (Non-African American) 121.7 ml/min; Globulin 2.5 gm/dl (2.5-4.0); Potassium 3.9 mmol/L (3.5-5.1); Total Protein 6.3 gm/dl (6.0-8.3)
[2023-09-14] MEDS: IBUPROFEN 200 MG TAB PO PRN (08:28)
--- NOTE | 2023-09-14 08:57 | Hospitalist Progress Note ---
Date of Service September 14, 2023 Assessment & Plan (1) Asthma: (2) Pneumothorax, right: (3) Endometriosis: Plan Pt is a 33yoF with PMHx significant for allergic sinusitis, endometriosis, asthma who is s/p hysterectomy and bilateral salpingectomy on 09/10/23 who presented to the ED for evaluation of right-sided chest pain. Further evaluation noted an expanding right apical pneumothorax. She is s/p right chest tube placement on 09/13/23. Pneumothorax, right Pt presented with right sided chest pain Chest XRAY noted worsening right apical pneumothorax from 2.6cm to 3cm Pulmonology consulted, appreciate recs -S/p chest tube placement on 09/13 with near complete resolution -Pain control Pt currently stable, no increased oxygen requirement Continue to monitor, further management per pulmonology Asthma Continue home inhaler Stable Endometriosis S/P laparoscopic hysterectomy and bilateral salpingectomy on 09/10/23 with [facility] [employer] [facility] admitting provider, Dr. Machado spoke with Dr. Hyman to make him aware of situation, no consult required at this time. Continue to monitor Diet: Regular DVT Prophylaxis: Lovenox, pt post op recently Dispo: Home once medically stable Admission and Anticipated Discharge Date Admission Date: September 13, 2023 Results & Data Results & Data Vital Signs (Past 12 Hours) Vital Signs Temp Pulse Pulse Resp BP Pulse Ox O2 Del Method 09/14/23 03:46 36.8 C 72 20 109/69 98 Room Air 09/14/23 00:42 80 09/13/23 23:22 Room Air 09/13/23 23:08 37.0 C 75 20 113/69 97 Room Air 09/13/23 21:40 70 09/13/23 21:27 36.9 C 69 20 124/77 99 Room Air 09/13/23 20:57 Room Air Diagnostic Findings Chest X-Ray 09/13/23 08:41 XR chest 1V portable HISTORY: 33 years-old Female Chest pain, nonspecific COMPARISON: None TECHNIQUE: AP view of the chest FINDINGS: Right apical pneumothorax with pleural separation of 2.6 cm. Cardiomediastinal and hilar silhouettes are within normal limits. No pleural effusion, airspace consolidation or pulmonary edema. The bones appear grossly intact. IMPRESSION: Right apical pneumothorax demonstrates pleural separation of 2.6 cm. ACT 112: Negative or not required by law. The above report was generated using voice recognition software. It may contain grammatical, syntax or spelling errors. Electronically signed by: Neri Brcok M.D. 09/13/2023 9:15 AM Chest X-Ray 09/13/23 14:58 SINGLE VIEW CHEST CLINICAL HISTORY: Follow-up pneumothorax FINDINGS: An AP, portable, upright chest radiograph is compared to study performed earlier the same day 09/13/2023. The cardiomediastinal silhouette is unremarkable. There is no airspace consolidation or pleural effusion. Again seen is a right apical pneumothorax. This has modestly increased in size from today's earlier examination with approximately 3 cm of apical pleural separation. No pneumothorax is seen on the left. The bony thorax is grossly intact. IMPRESSION: Again seen is a right apical pneumothorax. This has modestly increased in size as compared to today's earlier study. See above. ACT 112: Negative or not required by law. Electronically signed by: Nehemiah Shay M.D. 09/13/2023 3:20 PM Chest X-Ray 09/13/23 16:50 XR chest 1V portable HISTORY: s/p right apical chest tube COMPARISON: Chest 09/13/2023. FINDINGS: Interval placement of a right apical chest tube. The right pneumothorax is similar in size with a pleural gap of 3.6 cm. No pleural effusions. The lungs are clear. The heart is normal in size. No significant mediastinal shift. No acute fractures. IMPRESSION: Status post placement of a right apical chest tube. The right pneumothorax is similar to the prior study. ACT 112: Negative or not required by law. Electronically signed by: Anand Manzano M.D. 09/13/2023 5:45 PM Chest X-Ray 09/13/23 18:01 XR chest 1V portable HISTORY: persistent ptx, now on suction COMPARISON: Chest 09/13/2023. FINDINGS: There is a right apical pleural catheter in place. Near-complete resolution of the right pneumothorax which demonstrates a maximal pleural gap of 2 mm. The lungs are clear. No mediastinal shift. The heart is normal in size. No pleural effusions. No rib fractures. IMPRESSION: 1. Near-complete resolution of the right apical pneumothorax which now demonstrates a maximal pleural gap of 2 mm. 2. A right apical chest tube is in place. ACT 112: Negative or not required by law. Electronically signed by: Anand Manzano M.D. 09/13/2023 7:02 PM Chest X-Ray 09/14/23 07:00 XR chest 1V portable HISTORY: Chest tube . Follow-up pneumothorax. COMPARISON: Chest 09/13/2023. FINDINGS: Right apical chest tube is unchanged in position. The tiny right apical pneumothorax persists. This demonstrates a maximal pleural gap of 2 mm. The lungs are clear. No mediastinal shift. The heart is normal in size. IMPRESSION: Stable tiny right apical pneumothorax. A right-sided chest tube is unchanged in position. ACT 112: Negative or not required by law. Electronically signed by: Anand Manzano M.D. 09/14/2023 7:54 AM (1) Asthma Asthma severity: unspecified severity Asthma persistence: unspecified Asthma complication type: unspecified Qualified Code(s): J45.909 - Unspecified asthma, uncomplicated
[2023-09-14] MEDS ORDERED: ACETAMINOPHEN 500 MG TAB PO PRN (09:21)
[2023-09-14] MEDS ORDERED: ONDANSETRON INJ 2 MG/ML 2 ML VIAL IV PRN (09:21)
[2023-09-14] MEDS ORDERED: ALBUTEROL HFA 8 GM INHALER INH PRN (09:25)
[2023-09-14] MEDS: ENOXAPARIN INJ 40 MG/0.4 ML SYR SQ SCH (10:00)
--- NOTE | 2023-09-14 15:25 | XRay Report ---
XR chest 1V portable HISTORY: 33 years-old Female follow up ptx s/p clamping chest tube right-sided pneumothorax COMPARISON: 09/14/2023 TECHNIQUE: AP view of the chest FINDINGS: Cardiomediastinal and hilar silhouettes are within normal limits. Stable positioning of the right-rodrigue ed chest tube. No definite residual pneumothorax identified. No pleural effusion or overt pulmonary e destiny. The bones appear grossly intact. IMPRESSION: Unchanged positioning of the right-sided chest tube. No residual pneumothorax identified. ACT 112: Negative or not required by law. The above report was generated using voice recognition software. It may contain grammatical, syntax o r spelling errors. Electronically signed by: Neri rBock M.D. 09/14/2023 3:24 PM
--- NOTE | 2023-09-14 16:06 | Procedure Note ---
Procedure Note Date of Service September 14, 2023 Note Chest tube removal Chest tube was clamped for several hours and the patient ambulated around the hallways. No discomfort in her chest or shortness of breath. Follow-up chest x-ray revealed resolution of pneumothorax. Dressing was taken down. Area was cleaned with 4 x 4's that were moistened with saline. Suture was cut and removed. Chest tube was removed upon exhalation. Chest tube was evaluated and appeared to be fully intact upon removal. Patient tolerated the procedure well. OptiForm dressing placed over the chest tube insertion site. Instructions given to the patient to avoid strenuous activity for the next 4 weeks. Will have her follow-up in the pulmonary clinic with me in approximately 4 to 6 weeks. Coding CPT Codes Pulmonary/Thoracic - Pulmonary and Thoracic: 29478 Remove lung catheter ([id number]) [facility] [place]odes (Charges) Pulmonary/Thoracic Procedure 1: Pulmonary and Thoracic: 13618 Remove lung catheter
--- NOTE | 2023-09-14 16:10 | Pulmonology Progress Note ---
Date of Service September 14, 2023 Assessment & Plan (1) Pneumothorax, right: (2) Endometriosis: (3) Allergic asthma: Asthma severity: mild Asthma persistence: persistent Asthma complication type: uncomplicated Qualified Code(s): J45.30 - Mild persistent asthma, uncomplicated Plan 33-year-old female with reported history of asthma and endometriosis status post hysterectomy and bilateral salpingo-oophorectomy 09/10/2023 who presents to the ER today due to right-sided chest pain. She was found to have an expanding apical pneumothorax measuring about 2.9 cm Chest tube clamped today and was removed. Resolution of pneumothorax seen on follow-up chest x-ray. Pulmonary endometriosis remains a possible diagnosis. If she has recurrent right-sided pneumothorax, will need VATS procedure in a tertiary center. Patient instructed to avoid strenuous activity for the next 4 to 6 weeks. I will follow-up with her in the pulmonary clinic. She also notes a history of allergic asthma and takes albuterol 3-4 times a week. Will benefit from outpatient PFTs and FeNo testing in the near future. Continue albuterol as needed for the time being. Thank you for the consult. Patient is stable for discharge. Discussed with bedside nurse and and hospitalist via [place] text. Admission and Anticipated Discharge Date Admission Date: September 13, 2023 Subjective Chest tube clamped this morning and patient tolerated ambulation. Post chest tube clamping x-ray revealed resolution of pneumothorax. Chest tube removed at bedside and patient tolerated this well. Patient eager to go home. Denies chest pain or shortness of breath. Review of Systems Review of Systems: All systems reviewed & are unremarkable except as noted in HPI & below Physical Exam Physical Exam: Constitutional: Patient appears to be of their stated age. Patient is in no apparent distress. Patient is well-developed. Eyes: Pupils are equal round and reactive to light. Conjunctivae are normal. Anicteric sclera. Ears nose, mouth and throat: Mallampati class 1. Normal posterior oropharynx. Uvula is midline. Neck: Trachea is midline. Visual inspection is normal. Respiratory: Clear to auscultation bilaterally. No use of accessory muscles. No significant clubbing noted. Cardiovascular: Regular rate and rhythm. No murmurs. No edema. Gastrointestinal: Normal bowel sounds, soft, nontender and nondistended. No hepatosplenomegaly noted. Musculoskeletal: No cyanosis. Patient is able to move all extremities. Strength is 5 out of 5 in the upper and lower extremities. Skin: No rashes, warm dry and intact. Neurologic: No obvious focal neurological deficits seen. Psychiatric: Alert and oriented x3 with a euthymic affect. Results & Data Results & Data Vital Signs (Past 12 Hours) Vital Signs Temp Pulse Pulse BP Pulse Ox O2 Del Method 09/14/23 11:00 36.7 C 76 113/72 99 Room Air 09/14/23 09:43 56 L PG Care Time/CCT Total # of Minutes Spent Total Time Spent with Patient: Total time spent is greater than 50% in coordination of care (as documented) at patient's floor/unit and/or counseling patient: Coding Level of Care Code 84722 SUB INP/OBS CARE 2/35MIN Diagnoses Pneumothorax, right J93.9 Endometriosis N80.9 Mild persistent extrinsic asthma without complication J45.30 Asthma severity: mild Asthma persistence: persistent Asthma complication type: uncomplicated
--- NOTE | 2023-09-14 16:45 | Discharge Summary ---
Discharge Summary Date of Service September 14, 2023 Notes For Next Care Provider Please ensure close followup with pulmonology Please encourage no strenuous activity for the next 4-6 weeks per pulm recs Medication Changes From Visit None- pt indicated continued home oxycodone use for pain as needed Admission HPI Per Admitting Provider Bita Hernandez is a 33y/o F with PMHx of allergic sinusitis, endometriosis and asthma who presented to the ED for evaluation of right-sided chest pain. History obtained from the patient and previous PCP/[facility] records. Patient recently underwent laparoscopic hysterectomy and bilateral salpingectomy on 09/10/23, which was performed by Dr. Hyman. Patient states that she started to experience intermittent right-sided chest pain yesterday, which she describes as sharp/stabbing. Patient also mentions that the chest pain worsened with exertion, and was alleviated with rest and lying down yesterday. However, she states that the chest pain was worse whilst attempting to lie down this morning, and the increase in that pain is what prompted her to come to the ED in order to be seen. In ED, patient was found to have right apical pneumothorax measuring 2.6cm on chest x-ray. Dr. Ayala in the ED discussed this case with Dr. Machado (ICU/pulmonology), and it was decided that a repeat chest x-ray would be done after 6 hours of observation w/ oxygen therapy. Ultimately, after the 6 hours of observation in the ED, repeat chest x-ray revealed a modest increase of the right apical pneumothorax to approximately 3cm and the decision to place a chest tube was made by Dr. Machado. Patient was seen at bedside s/p chest tube placement. Patient states that she is currently "in a lot of pain," specifically focusing on her entire right thoracic region. Patient currently rates her pain 8/10. Patient mentions that she was given oxycodone 5mg after the chest tube was placed w/ no relief. She also endorses some SOB, which she did not experience prior to chest tube placement. Patient denies any abdominal pain, abnormal vaginal bleeding or concerning changes with her surgical sites from the laparoscopic hysterectomy and bilateral salpingectomy performed 3 days ago. Patient denies any N/V, bowel changes, urinary issues or recent fevers. Admission Exam Per Admitting Provider General Appearance: Patient sitting up in bed, appears generally uncomfortable. No acute distress. No conversational dyspnea. Head: Normocephalic, atraumatic. Eyes: Normal inspection, PERRL, conjunctivae normal, anicteric sclerae. ENT: External ear and nose normal, oropharynx normal. Neck: Normal visual inspection, trachea midline, no thyromegaly. Respiratory: Lungs clear to auscultation, no wheezing. No accessory muscle use. Cardiovascular: Regular rate, rhythm, no murmur, normal peripheral pulses, no BLE edema. Chest: Right apical chest tube in place, connected to suction; overlying bandage is in place. Abdomen/GI: Normal bowel sounds, soft, nontender, no hepatosplenomegaly. Extremities/Musculoskeletal: No cyanosis or clubbing, moves all extremities. Neurologic: No face palsy, no dysarthria. No focal deficits, patient conversing appropriately. Psychiatric: A+Ox3, euthymic affect. Skin: No rashes, normal color, warm/dry. Laparoscopic surgical sites from recent [employer] surgery, described above, appear healthy. No surrounding erythema or disch arge present at any of the sites. Principal Dx & Hospital Course #1 = Principal Diagnosis (1) Asthma: (2) Pneumothorax, right: (3) Endometriosis: Plan Pt is a 33yoF with PMHx significant for allergic sinusitis, endometriosis, asthma who is s/p hysterectomy and bilateral salpingectomy on 09/10/23 who presented to the ED for evaluation of right-sided chest pain. Further evaluation noted an expanding right apical pneumothorax. She is s/p right chest tube placement on 09/13/23. Pneumothorax, right Pt presented with right sided chest pain Chest XRAY noted worsening right apical pneumothorax from 2.6cm to 3cm Pulmonology consulted, appreciate recs -S/p chest tube placement on 09/12 with near complete resolution -chest tube removed on 09/13 after no residual pneumothorax noted on repeat chest xray -per Pulmonology, Dr Machado day of discharge: "Chest tube clamped today and was removed. Resolution of pneumothorax seen on follow-up chest x-ray. Pulmonary endometriosis remains a possible diagnosis. If she has recurrent righ t-sided pneumothorax, will need VATS procedure in a tertiary center. Patient instructed to avoid strenuous activity for the next 4 to 6 weeks. I will follow-up with her in the pulmonary clinic. She also notes a history of allergic asthma and takes albuterol 3-4 times a week. Will benefit from outpatient PFTs and FeNo testing in the near future. Continue albuterol as needed for the time being...Patient is stable for discharge." Please ensure Pulmonology followup after discharge with Dr. Ariel Machado from the [facility] Pulmonary department, office number [phone]. Asthma Continue home inhaler Pulmonology followup as above Endometriosis S/P laparoscopic hysterectomy and bilateral salpingectomy on 09/10/23 with [facility] physician Dr Hyman Per admitting provider, Dr. Machado spoke with Dr. Hyman to make him aware of situation, no consult required at this time. Pulmonology noting pulmonary endometriosis a possibility [employer] followup as previously scheduled Discharge Exam General: Alert, oriented. No acute distress Skin: No noted rashes or bruises Psych: Appropriate mood and affect Neuro: difficulty with movements post op and with chest tube in place HEENT: NC/AT CV: RRR Resp: Breath sounds clear bilaterally, no increased effort of breathing. Abdomen: Soft, tender Extremities: No edema in lower extremities bilaterally. Updated Medication List Medication Instructions Recorded Confirmed Type albuterol sulfate 90 mcg/actuation 2 puff inhalation QID PRN 08/25/19 09/13/23 History aerosol inhaler Shortness Of Breath Or Wheezing cetirizine 10 mg tablet (Zyrtec) 10 mg PO DAILY PRN Congestion 08/24/23 09/13/23 History multivitamin 1 tab PO DAILY 09/10/23 09/13/23 History oxycodone-acetaminophen 5 mg-325 1 tab PO Q4H PRN pain #14 tabs 09/10/23 09/13/23 Rx mg tablet (Percocet) fluticasone propionate 50 1 spray intranasal DAILY 09/13/23 09/13/23 History mcg/actuation nasal spray,suspension Hospital Stay Data Consultations 09/13/23 17:11 ED Decision to Admit Stat Diagnostic Imagining Performed Chest X-Ray 09/13/23 08:41 XR chest 1V portable HISTORY: 33 years-old Female Chest pain, nonspecific COMPARISON: None TECHNIQUE: AP view of the chest FINDINGS: Right apical pneumothorax with pleural separation of 2.6 cm. Cardiomediastinal and hilar silhouettes are within normal limits. No pleural effusion, airspace consolidation or pulmonary edema. The bones appear grossly intact. IMPRESSION: Right apical pneumothorax demonstrates pleural separation of 2.6 cm. ACT 112: Negative or not required by law. The above report was generated using voice recognition software. It may contain grammatical, syntax or spelling errors. Electronically signed by: Neri Brock M.D. 09/13/2023 9:15 AM Chest X-Ray 09/13/23 14:58 SINGLE VIEW CHEST CLINICAL HISTORY: Follow-up pneumothorax FINDINGS: An AP, portable, upright chest radiograph is compared to study performed earlier the same day 09/13/2023. The cardiomediastinal silhouette is unremarkable. There is no airspace consolidation or pleural effusion. Again seen is a right apical pneumothorax. This has modestly increased in size from today's earlier examination with approximately 3 cm of apical pleural separation. No pneumothorax is seen on the left. The bony thorax is grossly intact. IMPRESSION: Again seen is a right apical pneumothorax. This has modestly increased in size as compared to today's earlier study. See above. ACT 112: Negative or not required by law. Electronically signed by: Nehemiah Shay M.D. 09/13/2023 3:20 PM Chest X-Ray 09/13/23 16:50 XR chest 1V portable HISTORY: s/p right apical chest tube COMPARISON: Chest 09/13/2023. FINDINGS: Interval placement of a right apical chest tube. The right pneumothorax is similar in size with a pleural gap of 3.6 cm. No pleural effusions. The lungs are clear. The heart is normal in size. No significant mediastinal shift. No acute fractures. IMPRESSION: Status post placement of a right apical chest tube. The right pneumothorax is similar to the prior study. ACT 112: Negative or not required by law. Electronically signed by: Anand Manzano M.D. 09/13/2023 5:45 PM Chest X-Ray 09/13/23 18:01 XR chest 1V portable HISTORY: persistent ptx, now on suction COMPARISON: Chest 09/13/2023. FINDINGS: There is a right apical pleural catheter in place. Near-complete resolution of the right pneumothorax which demonstrates a maximal pleural gap of 2 mm. The lungs are clear. No mediastinal shift. The heart is normal in size. No pleural effusions. No rib fractures. IMPRESSION: 1. Near-complete resolution of the right apical pneumothorax which now demonstrates a maximal pleural gap of 2 mm. 2. A right apical chest tube is in place. ACT 112: Negative or not required by law. Electronically signed by: Anand Manzano M.D. 09/13/2023 7:02 PM Chest X-Ray 09/14/23 07:00 XR chest 1V portable HISTORY: Chest tube . Follow-up pneumothorax. COMPARISON: Chest 09/13/2023. FINDINGS: Right apical chest tube is unchanged in position. The tiny right apical pneumothorax persists. This demonstrates a maximal pleural gap of 2 mm. The lungs are clear. No mediastinal shift. The heart is normal in size. IMPRESSION: Stable tiny right apical pneumothorax. A right-sided chest tube is unchanged in position. ACT 112: Negative or not required by law. Electronically signed by: Anand Manzano M.D. 09/14/2023 7:54 AM Chest X-Ray 09/14/23 14:30 XR chest 1V portable HISTORY: 33 years-old Female follow up ptx s/p clamping chest tube right-sided pneumothorax COMPARISON: 09/14/2023 TECHNIQUE: AP view of the chest FINDINGS: Cardiomediastinal and hilar silhouettes are within normal limits. Stable positioning of the right-sided chest tube. No definite residual pneumothorax identified. No pleural effusion or overt pulmonary edema. The bones appear g rossly intact. IMPRESSION: Unchanged positioning of the right-sided chest tube. No residual pneumothorax identified. ACT 112: Negative or not required by law. The above report was generated using voice recognition software. It may contain grammatical, syntax or spelling errors. Electronically signed by: Neri Brock M.D. 09/14/2023 3:24 PM Pending Results Patient Have Any Pending Studies at Discharge: No Discharge Instructions Given to Patient (Per Discharging Provider) Bita, You were admitted with a pneumothorax that required chest tube placement to help it resolve. You were seen by the barrel brander who performed that procedure and removed the chest tube today 09/13. He has indicated that you are stable for discharge home. Please keep close followup with pulmonology after discharge as discussed. Dr. Ariel Machado was the barrel brander you saw and he states that his office spec will call you to set up the followup appointment. You can also call the office at [phone] if you have not heard from them. They advise that you avoid strenuous activity for the next 4 to 6 weeks. For your asthma, they indicate that you will likely need further testing but you should continue with your albuterol inhaler as needed for the time being. You indicated that you had oxycodone at home from the time of your recent surgery to use for any associated pain as needed. Please continue to use that as needed. You can also use Tylenol for mild pain as well. Please also keep close follow up with your primary care provider after discharge. Please do not hesitate to come back to the emergency room if your symptoms worsen or return. It was a pleasure taking care of you while you were here. Total Time Total Time Spent Total Time Spent (In Minutes): > 30 minutes
[2023-09-14 16:55] VITALS: BP 124/67; PULSE 88; RESP 18; TEMP 98.4; O2SAT 98
--- NOTE | 2023-09-15 12:14 | Emergency Department Note ---
Post Sedation Assessment Recovery Score Activity: Moves 4 extremities Respiration: Deep Breath/Cough Circulation: +/-20% PreAnes Value Consciousness: Fully Awake Oxygen Saturation: > 92% On Room Air Post Anesthesia Score: 10 Discharge Sedation Level of Care: Fast Track Phase II Post Sedation Plan On clinical assessment, the patient appears to have tolerated the sedation without complications. Patient is recovering as anticipated. Patient will continue to be monitored by nursing and may be discharged when sedation discharge criteria are met per below protocol. Upon Completions of procedure up to 15 minutes continue every 5 minute vital signs and the P.A.R. score; then discharge to a Phase I or Fast Track to Phase II per the following guidelines: * Discharge Patient to appropriate Phase II area if PAR is 8 or greater or return to pre- procedure baseline. The post - procedure orders will be as directed. * If PAR score is less than 8 or not return to pre-procedure baseline then patient will follow Phase I monitoring till PAR is reached for Phase II. The Phase I may be done in procedure room or may call to secure a Phase I area. * If naloxone or flumazenil are used for reversal, hold in Phase I for continued monitoring from when last reversal dose was given for a minimum of 60 minutes or longer pending the nurse and/or physician discretion of patient condition before discharge to Phase II. Please call the Sedation Physician to re-evaluate and complete post-note for discharge to Phase II area. Do NOT discharge from procedure sedation or Phase 1 until post- sedation evaluation note is complete by procedure /sedation MD Sedation Discharge Instructions to be given to the patient at discharge to home. Sedation Data Sedation Times Sedation Start Date: 09/13/23 Sedation Start Time: 16:24 Sedation End Date: 09/13/23 Sedation End Time: 16:55 Total Sedation Time: 31 Procedure Times Procedure Start Time:: 16:25 Procedure End Time: 16:40
--- NOTE | 2023-09-15 12:14 | Emergency Department Note ---
Pre Sedation Assessment Pre-Sedation Airway Assessment Smoking Status: Unknown if ever smoked Hx Sleep Apnea: No Short, Thick Neck: No Thyromental Distance: > or= 3.5 Finger Breadths Oral Cavity: + WNL Mallampati Class: I ASA: ASA1 NPO Status Date of Last Intake of Fluids: 09/13/23 Time of Last Intake of Fluids: 10:00 Date of Last Intake of Solid Food: 09/13/23 Time of Last Intake of Solid Foods: 10:00 Notes The planned sedation has been discussed with the patient. Informed Consent was obtained. I have identified the patient, determined the appropriateness of sedation and have assessed the patient immediately prior to the procedure. All medicine(s) and interventions are by my order.
== END 2023-09-14 18:42 | disposition home or self-care (01) | DRG 201 ==
LOC: ED 08:32 → SUATTDRO 18:13 → EDINP 18:13 → 2E 20:57

== ENCOUNTER 2023-11-12 18:31 | Inpatient (IN) ==
--- NOTE | 2023-11-12 19:04 | Emergency Department Note ---
Impression & Plan Pneumothorax, right, Chest pain ED Provider Note NAME: RICA TANNER AGE: 33 SEX: F : 1990 ARRIVES VIA: Walk-In INFORMANT: Patient, ED PROVIDER(S): Israel Restrepo DO CHIEF COMPLAINT: Chest pain HPI: The patient is a 33-year-old female who presented to the emergency department for an evaluation of chest pain. The patient describes right-sided chest pain that began over the course the last day. The patient has a history of a pneumothorax. She did have a chest tube. This was felt to be secondary to positive pressure ventilation while she was having hysterectomy. The patient denies having any hemoptysis. She denies having any back pain or lower extremity swelling. She did not see her family doctor for the symptoms but presented to the emergency department. ROS: See above HPI for pertinent positives & negatives. A total of 10 systems reviewed and were otherwise negative. PAST MEDICAL HISTORY: See Below PAST SURGICAL HISTORY: See Below FAMILY HISTORY: See Below SOCIAL HISTORY: See Below HOME MEDICATIONS: See Below ALLERGIES: See Below VITALS: See Below PHYSICAL EXAMINATION: GENERAL: Patient is awake alert in no acute distress patient is resting comfortably and showing no signs of anxiety EYES: The conjunctivae are clear. The pupils are round and reactive. EARS, NOSE, MOUTH AND THROAT: The nose is without any evidence of any deformity. NECK: The neck is nontender and supple. RESPIRATORY: Normal respiratory effort is noted there is no evidence of wheezing rhonchi or rales CARDIOVASCULAR: Regular rate and rhythm noted there no murmurs rubs or gallops normal S1 normal S2. GASTROINTESTINAL: The abdomen is soft. Abdomen is nontender. MUSCULOSKELETAL/EXTREMITIES: There is no evidence of gross deformity full range of motion is noted in the hips and shoulders. SKIN: There is no obvious evidence of any rash. There are no petechiae, pallor or cyanosis noted. NEUROLOGIC: Patient is awake alert and oriented x3 MEDICAL DECISION MAKING: The patient is a 33-year-old female who presented to the emergency department for an evaluation of chest pain. The patient has a history of a right-sided pneumothorax. This was previously treated with pigtail chest tube. The patient presents to the emergency department today because of ongoing symptoms. I discussed the patient's laboratory and radiographic studies with her. She appears to have a right-sided pneumothorax with approximately 2 cm of separation from the chest wall. This is right-sided and apical. I discussed patient's condition with the on-call pulmonary doctor. They do recommend repeating the chest x-ray. There is no need for pneumothorax at this time. The patient is stable. I discussed the patient's condition with the on-call [facility] hospitalist. They have agreed to evaluate the patient in the emergency department for further management and disposition. Triage Nursing notes reviewed. Prior medical records reviewed Vital Signs: reviewed and remarkable for elevated blood pressure. Differential diagnosis: Cardiac ischemia, aortic dissection, pulmonary embolism, pneumothorax, pneumonia, pericarditis, myocarditis, esophageal rupture, GERD, cholecystitis, pancreatitis, musculoskeletal, as well as other pathologies. ER treatment provided: See below Diagnostics interpreted by me: ECG: EKG was obtained in the emergency department. My interpretation is normal sinus rhythm at 96 bpm. There is no ectopy. ST segment depressions were noted in the low lateral leads. This was compared to a tracing from September 13, 2023. No changes were noted. Cardiac Monitoring: An order was placed for continuous cardiac monitoring. The monitor shows a rate of 78 bpm with sinus rhythm. Laboratory studies: As stated above and show below. Imaging studies: See below. Radiographic imaging was reviewed by myself Consultation(s): I discussed this case with Dr. Nieto who is on-call for pulmonary. He does recommend repeating the chest x-ray in 6 hours. If no progression of the pneumothorax the patient can follow-up as an outpatient. I discussed this case with Dr. Laguna [facility] Past Med/Surg History Problem List (Updated 11/12/23 @ 20:15 by Israel Restrepo DO) Chest pain (Acute) Spontaneous pneumothorax Allergic asthma S/P laparoscopic hysterectomy (Acute) Asthma (Acute) Pneumothorax, right (Acute) Endometriosis (Acute) Medical History Fibroid uterus Encounter for pre-operative examination Endometrioma of ovary Encounter for cosmetic procedure Mass of right ovary Surgical History Hx of laparoscopy Operative laparoscopy, Laparoscopic myomectomy, Bilateral ovarian cystectomy, Extensive lysis of adhesions, Excision and ablation of endometriosis Status post laser ablation of incompetent vein Family History Grandmother (Paternal) Diabetes Social History Smoking Status: Never smoker Second Hand Exposure: No; Do You Dip or Chew Tobacco: No; Hx Alcohol Use: Yes Alcohol type: beer, wine and hard liquor Hx Substance Use: No Preferred Language: Hungarian Communication Ability: Effective Government Affairs Director Required: No Beliefs That Will Affect Care: None Current Living Situation: Spouse Feels Safe at Home: Yes Assistive Devices: None Allergies Allergies Allergy/AdvReac Type Severity Reaction Status Date / Time No Known Allergies Allergy Verified 10/25/23 09:58 Home Meds Home Medications Medication Instructions Recorded Confirmed albuterol sulfate 90 mcg/actuation 2 puff inhalation QID PRN 08/25/19 10/25/23 aerosol inhaler Shortness Of Breath Or Wheezing cetirizine 10 mg tablet (Zyrtec) 10 mg PO DAILY PRN Congestion 08/24/23 10/25/23 multivitamin 1 tab PO DAILY 09/10/23 10/25/23 fluticasone propionate 50 1 spray intranasal DAILY 09/13/23 10/25/23 mcg/actuation nasal spray,suspension Previous Rx's Medication Instructions Recorded albuterol 90 mcg-budesonide 80 2 inh inhalation TID PRN shortness 10/31/23 mcg/actuation HFA aerosol inhaler of breath #10.7 grams (Airsupra) Results & Data (ED) Vital Signs Vital Signs - 24 hr 11/12/23 18:34 11/12/23 19:22 11/12/23 19:33 Temperature 36.8 C Temperature Source Temporal Artery Scan Pulse Rate 99 H 79 88 Pulse Rate from SpO2 Sensor 84 Pulse Rhythm Regular Respiratory Rate 20 16 Respiratory Effort / Characteristics Non-Labored Spontaneous Respiratory Depth Normal Blood Pressure 180/104 H 136/81 Blood Pressure Mean 129 99 Pulse Oximetry 97 100 Oxygen Delivery Method Room Air Nasal Cannula Oxygen Flow Rate 2 Sepsis Recent Fever Within 48 Hours No Sepsis New/Unexplained Change in Mental Status No Sepsis Action Taken by Nursing No Action Required 11/12/23 19:45 11/12/23 20:00 11/12/23 20:30 Temperature Temperature Source Pulse Rate 87 82 Pulse Rate from SpO2 Sensor 92 H 84 Pulse Rhythm Respiratory Rate 18 16 Respiratory Effort / Characteristics Respiratory Depth Blood Pressure 139/87 129/85 Blood Pressure Mean 104 99 Pulse Oximetry 100 100 Oxygen Delivery Method Nasal Cannula Nasal Cannula Nasal Cannula Oxygen Flow Rate 2 2 2 Sepsis Recent Fever Within 48 Hours Sepsis New/Unexplained Change in Mental Status Sepsis Action Taken by [facility] Medications Current Medication List: was personally reviewed by me Laboratory Data Attestation: I reviewed the patient's lab results. 11/12/23 18:45 11/12/23 18:45 Lab Results 11/12/23 Range/Units 18:45 WBC 4.54 L (4.8-10.8) K/ul RBC 4.68 (4.20-5.40) M/uL Hgb 13.3 (12.0-16.0) g/dl Hct 39.7 (37.0-47.0) % MCV 84.8 (80.0-100.0) fL MCH 28.4 (25.0-34.0) pg MCHC 33.5 (32.0-36.0) g/dL RDW Std Deviation 40.5 (36.4-46.3) fL RDW Coeff of Jayla 13.1 (11.5-14.5) % Plt Count 202 (130-400) K/uL MPV 9.9 (9.4-12.4) fL Immature Gran % (Auto) 0.0 % Neut % (Auto) 40.3 % Lymph % (Auto) 43.6 % Ashley % (Auto) 10.6 % Eos % (Auto) 3.5 % Baso % (Auto) 2.0 % Neut # (Auto) 1.83 (1.40-6.50) K/uL Lymph # (Auto) 1.98 (1.20-3.40) K/uL Ashley # (Auto) 0.48 (0.11-0.59) K/uL Eos # (Auto) 0.16 (0.00-0.50) K/uL Baso # (Auto) 0.09 (0.00-0.20) K/uL Immature Gran # (Auto) 0.00 L (0.01-0.20) K/uL PT 11.2 (9.0-12.0) Seconds INR 1.0 (0.9-1.1) APTT 25 (21-31) Seconds PTT Ratio 0.9 Sodium 138 (136-145) mmol/L Potassium 3.2 L (3.5-5.1) mmol/L Chloride 105 (98-107) mmol/L Carbon Dioxide 24 (21-32) mmol/L Anion Gap 9 (3-11) BUN 7 (6-23) mg/dl Creatinine 0.64 (0.6-1.2) mg/dl Est Cr Clr Drug Dosing 113.6 ml/min Est GFR ( Amer) 134.9 ml/min Est GFR (Non-Af Amer) 116.4 ml/min BUN/Creatinine Ratio 10.9 (10-20) Glucose 95 (70-99(Fasting)) mg/dl Calcium 9.5 (8.6-10.3) mg/dl Total Bilirubin 0.4 (0.2-1.0) mg/dl AST 14 (13-39) U/L ALT 8 (7-52) U/L Alkaline Phosphatase 50 (34-104) U/L Troponin I High Sens < 2.3 (0-14) pg/ml Total Protein 7.9 (6.0-8.3) gm/dl Albumin 4.8 (3.4-5.0) gm/dl Globulin 3.1 (2.5-4.0) gm/dl Albumin/Globulin Ratio 1.5 (0.9-2) Imaging Data Attestation: I personally reviewed and interpreted this imaging study as follows: My Impression: 1 view chest x-ray was obtained in the emergency department. My interpretation is right apical pneumothorax with approximately 2 cm of separation. Final report pending. Discharge Plan Visit Data Chief Complaint: Chest Pain Stated Complaint: COLLASPED LUNG ED Provider: Israel Restrepo Discharge Problem: Pneumothorax, right, Chest pain Forms Stand Alone Forms: My [facility] Prescriptions Prescriptions: No Action Airsupra 90-80 mcg/actuation HFA aerosol inhaler 2 inh inhalation TID PRN (Reason: shortness of breath) Qty: 10.7 4RF Rx Instructions: BIN# [id number] PCN# PDMI [facility]# [id number] ID# [id number] albuterol sulfate 90 mcg/actuation Hfa Aerosol Inhaler 2 puff INHALATION QID PRN (Reason: Shortness Of Breath Or Wheezing) cetirizine [Zyrtec] 10 mg Tablet 10 mg PO DAILY PRN (Reason: Congestion) multivitamin Tablet 1 tab PO DAILY fluticasone propionate 50 mcg/actuation spray,suspension 1 spray INTRANASAL DAILY Referrals Referrals: Shara Steward MD [Primary Care Provider] - Discharge Problem: Chest pain Qualifiers: Chest pain type: unspecified Qualified Code(s): R07.9 - Chest pain, unspecified
[2023-11-12 19:07] LABS: Basophils # (auto) 0.09 K/uL (0.00-0.20); Eosinophils # (auto) 0.16 K/uL (0.00-0.50); Eosinophils % (auto) 3.5 %; Hematocrit (blood only) 39.7 % (37.0-47.0); Hemoglobin 13.3 g/dl (12.0-16.0); Lymphocytes # (auto) 1.98 K/uL (1.20-3.40); Lymphocytes % (auto) 43.6 %; Mean Corpuscular Hemoglobin 28.4 pg (25.0-34.0); Mean Corpuscular Hgb Conc 33.5 g/dL (32.0-36.0); Mean Corpuscular Volume 84.8 fL (80.0-100.0); Mean Platelet Volume 9.9 fL (9.4-12.4); Monocytes # (auto) 0.48 K/uL (0.11-0.59); Monocytes % (auto) 10.6 %; Neutrophils # (auto) 1.83 K/uL (1.40-6.50); Neutrophils % (auto) 40.3 %; Partial Thromboplastin Ratio 0.9; Partial Thromboplastin Time 25 Seconds (21-31); Platelet Count 202 K/uL (130-400); Prothrombin Time 11.2 Seconds (9.0-12.0); RDW Coefficient of Variation 13.1 % (11.5-14.5); RDW Standard Deviation 40.5 fL (36.4-46.3); Red Blood Count 4.68 M/uL (4.20-5.40); White Blood Count 4.54 K/ul (4.8-10.8)
[2023-11-12 19:19] LABS: Alanine Aminotransferase 8 U/L (7-52); Albumin Globulin Ratio 1.5 (0.9-2); Albumin Level 4.8 gm/dl (3.4-5.0); Alkaline Phosphatase 50 U/L (34-104); Anion Gap 9 (3-11); Aspartate Aminotransferase 14 U/L (13-39); BUN Creatinine Ratio 10.9 (10-20); Bilirubin,Total 0.4 mg/dl (0.2-1.0); Blood Urea Nitrogen 7 mg/dl (6-23); Calcium 9.5 mg/dl (8.6-10.3); Carbon Dioxide 24 mmol/L (21-32); Chloride 105 mmol/L (98-107); Creatinine Clr Calc Pharmacy 113.6 ml/min; Est GFR (African American) 134.9 ml/min; Est GFR (Non-African American) 116.4 ml/min; Globulin 3.1 gm/dl (2.5-4.0); Glucose 95 mg/dl (70-99(Fasting)); Potassium 3.2 mmol/L (3.5-5.1); Sodium 138 mmol/L (136-145); Total Protein 7.9 gm/dl (6.0-8.3)
[2023-11-12 19:26] LABS: Troponin I High Sensitivity < 2.3 pg/ml (0-14)
--- NOTE | 2023-11-12 21:43 | History & Physical Report ---
Date of Service November 12, 2023 Assessment & Plan (1) Spontaneous pneumothorax: Plan: 33-year-old female with past medical history significant for allergic sinusitis, asthma, presents with chest pain and found to have right apical pneumothorax. Patient noticed today evening right upper chest and back/shoulder pain which prompted her come to the ER. The pain is more when taking deep breath. No fevers. No cough. No headache. No blurred vision. No runny nose or sore throat. Appetite is okay. Currently on 2 L saturating okay. Resting comfortably. No nausea. No abdominal pain. Normal bowel and bladder movements. Ambulating okay. In September 2023 patient was admitted with chest pain and found to have right-sided pneumothorax. At that time she was s/p chest tube placement with resolution of the pneumothorax. Question of pulmonary endometriosis . Patient followed with pulmonary and there is recommendations to pursue CT chest and likely VATS for pleurodesis and possible pleural biopsies to evaluate for pleural endometriosis if pneumothorax recurs. spontaneous pneumothorax right apical region second episode ER discussed with pulmonary and recommend to follow-up chest x-ray in 6 hours if no progression to follow as outpatient will follow repeat chest x-ray telemetry close monitoring pulmonary consult in a.m. for further recommendations. Allergic sinusitis asthma currently stable continue home meds DVT prophylaxis SCDs disposition telemetry full code History of Present Illness Chief Complaint: chest pain, pneumothorax Primary Care Provider: Shara Steward MD 33-year-old female with past medical history significant for allergic sinusitis, asthma, presents with chest pain and found to have right apical pneumothorax. Patient noticed today evening right upper chest and back/shoulder pain which prompted her come to the ER. The pain is more when taking deep breath. No fevers. No cough. No headache. No blurred vision. No runny nose or sore throat. Appetite is okay. Currently on 2 L saturating okay. Resting comfortably. No nausea. No abdominal pain. Normal bowel and bladder movements. Ambulating okay. In September 2023 patient was admitted with chest pain and found to have right-sided pneumothorax. At that time she was s/p chest tube placement with resolution of the pneumothorax. Question of pulmonary endometriosis . Patient followed with pulmonary and there is recommendations to pursue CT chest and likely VATS for pleurodesis and possible pleural biopsies to evaluate for pleural endometriosis if pneumothorax recurs. past medical history. As mentioned above Past surgical history. Dental surgery. Total abdominal hysterectomy. Removal of fibroid uterus tumor. Social history. . No smoking. Alcohol 3 standard drinks of alcohol per week. No drug use. Family history. Maternal grandmother had cancer. Diabetes. Maternal grandfather had CAD s/p CABG. Allergies Allergy/AdvReac Type Severity Reaction Status Date / Time No Known Allergies Allergy Verified 11/12/23 21:19 Home Medications Medication Instructions Recorded Confirmed Type albuterol 90 mcg-budesonide 80 2 inh inhalation QID PRN Shortness 11/12/23 11/12/23 History mcg/actuation HFA aerosol inhaler Of Breath Or Wheezing fluticasone propionate 50 2 spray intranasal DAILY 11/12/23 11/12/23 History mcg/actuation nasal spray,suspension Past Med/Surg History Problem List (Updated 11/12/23 @ 20:15 by Israel Restrepo DO) Chest pain (Acute) Spontaneous pneumothorax Allergic asthma S/P laparoscopic hysterectomy (Acute) Asthma (Acute) Pneumothorax, right (Acute) Endometriosis (Acute) Medical History Fibroid uterus Encounter for pre-operative examination Endometrioma of ovary Encounter for cosmetic procedure Mass of right ovary Surgical History Hx of laparoscopy Operative laparoscopy, Laparoscopic myomectomy, Bilateral ovarian cystectomy, Extensive lysis of adhesions, Excision and ablation of endometriosis Status post laser ablation of incompetent vein Family History Grandmother (Paternal) Diabetes Social History Smoking Status: Never smoker Second Hand Exposure: No; Do You Dip or Chew Tobacco: No; Hx Alcohol Use: Yes Alcohol type: beer, wine and hard liquor Hx Substance Use: No Preferred Language: Yoruba Communication Ability: Effective Data Conversion Operator Required: No Beliefs That Will Affect Care: None Current Living Situation: Spouse Feels Safe at Home: Yes Safety Concerns: Feels Safe At This Time Assistive Devices: Glasses Review of Systems Review of Systems: All systems reviewed & are unremarkable except as noted in HPI & below Physical Exam Physical Exam: General- Not in distress. Head- atraumatic Eyes- PERRL. ENT- oropharynx clear Neck- supple, no JVD. Lungs- clear to auscultation no wheezing or crackles. Heart- regular rate and rhythm; no murmur, no gallop. Abdomen- normal bowel sounds, soft, nontender, no distension Extremities- no pretibial edema, no erythema seen. Neuro- alert, oriented PERRL, no facial palsy; no dysarthria; Results & Data Results & Data Vital Signs (Past 12 Hours) Vital Signs Temp Pulse Resp BP Pulse Ox O2 Del Method O2 Flow Rate 11/12/23 20:30 82 16 129/85 100 Nasal Cannula 2 11/12/23 20:00 Nasal Cannula 2 11/12/23 19:45 87 18 139/87 100 Nasal Cannula 2 11/12/23 19:33 88 16 136/81 100 Nasal Cannula 2 11/12/23 19:22 79 11/12/23 18:34 36.8 C 99 H 20 180/104 H 97 Room Air Diagnostic Findings Laboratory Results WBC 4.54 K/ul (4.8-10.8) L 11/12/23 18:45 RBC 4.68 M/uL (4.20-5.40) 11/12/23 18:45 Hgb 13.3 g/dl (12.0-16.0) 11/12/23 18:45 Hct 39.7 % (37.0-47.0) 11/12/23 18:45 MCV 84.8 fL (80.0-100.0) 11/12/23 18:45 MCH 28.4 pg (25.0-34.0) 11/12/23 18:45 MCHC 33.5 g/dL (32.0-36.0) 11/12/23 18:45 RDW Std Deviation 40.5 fL (36.4-46.3) 11/12/23 18:45 RDW Coeff of Jayla 13.1 % (11.5-14.5) 11/12/23 18:45 Plt Count 202 K/uL (130-400) 11/12/23 18:45 MPV 9.9 fL (9.4-12.4) 11/12/23 18:45 Immature Gran % (Auto) 0.0 % 11/12/23 18:45 Neut % (Auto) 40.3 % 11/12/23 18:45 Lymph % (Auto) 43.6 % 11/12/23 18:45 Wise % (Auto) 10.6 % 11/12/23 18:45 Eos % (Auto) 3.5 % 11/12/23 18:45 Baso % (Auto) 2.0 % 11/12/23 18:45 Neut # (Auto) 1.83 K/uL (1.40-6.50) 11/12/23 18:45 Lymph # (Auto) 1.98 K/uL (1.20-3.40) 11/12/23 18:45 Wise # (Auto) 0.48 K/uL (0.11-0.59) 11/12/23 18:45 Eos # (Auto) 0.16 K/uL (0.00-0.50) 11/12/23 18:45 Baso # (Auto) 0.09 K/uL (0.00-0.20) 11/12/23 18:45 Immature Gran # (Auto) 0.00 K/uL (0.01-0.20) L 11/12/23 18:45 PT 11.2 Seconds (9.0-12.0) 11/12/23 18:45 INR 1.0 (0.9-1.1) 11/12/23 18:45 APTT 25 Seconds (21-31) 11/12/23 18:45 PTT Ratio 0.9 11/12/23 18:45 Sodium 138 mmol/L (136-145) 11/12/23 18:45 Potassium 3.2 mmol/L (3.5-5.1) L 11/12/23 18:45 Chloride 105 mmol/L (98-107) 11/12/23 18:45 Carbon Dioxide 24 mmol/L (21-32) 11/12/23 18:45 Anion Gap 9 (3-11) 11/12/23 18:45 BUN 7 mg/dl (6-23) 11/12/23 18:45 Creatinine 0.64 mg/dl (0.6-1.2) 11/12/23 18:45 Est Cr Clr Drug Dosing 113.6 ml/min 11/12/23 18:45 Est GFR ( Amer) 134.9 ml/min 11/12/23 18:45 Est GFR (Non-Af Amer) 116.4 ml/min 11/12/23 18:45 BUN/Creatinine Ratio 10.9 (10-20) 11/12/23 18:45 Glucose 95 mg/dl (70-99(Fasting)) 11/12/23 18:45 Calcium 9.5 mg/dl (8.6-10.3) 11/12/23 18:45 Total Bilirubin 0.4 mg/dl (0.2-1.0) 11/12/23 18:45 AST 14 U/L (13-39) 11/12/23 18:45 ALT 8 U/L (7-52) 11/12/23 18:45 Alkaline Phosphatase 50 U/L (34-104) 11/12/23 18:45 Troponin I High Sens < 2.3 pg/ml (0-14) 11/12/23 18:45 Total Protein 7.9 gm/dl (6.0-8.3) 11/12/23 18:45 Albumin 4.8 gm/dl (3.4-5.0) 11/12/23 18:45 Globulin 3.1 gm/dl (2.5-4.0) 11/12/23 18:45 Albumin/Globulin Ratio 1.5 (0.9-2) 11/12/23 18:45 ECG Additional Comments: ECG. Normal sinus rhythm with rate of 96. No significant change was found. QTc 447. Code Status & VTE Plan VTE Prophylaxis Plan VTE Prophylaxis will be ordered: Yes
[2023-11-12] MEDS ORDERED: NITROGLYCERIN SL 0.4 MG/TAB TAB SL PRN (23:11)
[2023-11-12] MEDS ORDERED: ACETAMINOPHEN 325 MG TAB PO PRN (23:11)
[2023-11-12] MEDS ORDERED: POLYETHYLENE (MIRALAX) 17 GM PACK PO PRN (23:11)
--- NOTE | 2023-11-13 07:37 | XRay Report ---
XR chest 1V not portable CLINICAL HISTORY: Chest pain, nonspecific TECHNIQUE: Single frontal radiograph of the chest was obtained. Comparison: Comparison is made to chest radiograph 09/14/2023 FINDINGS: No lines and tubes are seen. The cardiomediastinal silhouette is normal. The lungs are clear. Right p neumothorax is seen. IMPRESSION: Right pneumothorax is new from prior exam. ACT 112: Negative or not required by law. Electronically signed by: Rosendo Lawrence M.D. 11/13/2023 7:35 AM
--- NOTE | 2023-11-13 08:00 | XRay Report ---
XR chest 1V portable CLINICAL HISTORY: pneumothorax TECHNIQUE: Single frontal radiograph of the chest was obtained. Comparison: Comparison is made to chest radiographs 11/12/2023 FINDINGS: No lines and tubes are seen. The cardiomediastinal silhouette is normal. The lungs are clear. Small r ight pneumothorax is unchanged. IMPRESSION: Stable small right pneumothorax. ACT 112: Negative or not required by law. Electronically signed by: Rosendo Lawrence M.D. 11/13/2023 7:58 AM
--- NOTE | 2023-11-13 08:48 | Pulmonary Consultation ---
Date of Consultation November 13, 2023 Assessment & Plan (1) Spontaneous pneumothorax: Plan Impression: 33-year-old female with recurrent right-sided pneumothorax. Possibility of catamenial pneumothorax persists. Pneumothorax has not demonstrated any progression over 12 hours and the patient is hemodynamically stable and eligible to dismiss from the hospital. Recommendations: 1. Spontaneous pneumothorax: Will complete CT of the chest without contrast to complete the patient's workup. She can be dismissed from the hospital with outpatient follow-up with Dr. Machado. Given that this is her second event, would recommend thoracic surgery evaluation with possible video-assisted t horacoscopic evaluation for pleural endometriosis and pleurodesis. The patient and her are leaning towards having this done in [place] as they stated that it is closer to family. This can be conducted as an outpatient. 2. The patient should return to the emergency room for increasing chest pain or shortness of breath but given the clinical and radiographic stability over 12 hours it is unlikely that she will progress at this point in time. The above recommendations and plan were discussed with the patient as well as with her at bedside. Questions were answered to the best my ability. She expressed understanding and is in agreement with plan as outlined. Pulmonary will sign off. Feel free to contact us with questions or concerns History of Present Illness Attending Physician: Demarco Rios MD History of Present Illness Asked by hospitalist to assist in evaluation management this patient with a recurrent pneumothorax. History is obtained from discussion with the patient and her as well as review the electronic medical record and discussion with the ER staff. Patient is a 33-year-old female he was admitted back in September with pneumothorax. She was seen by one of my partners. She underwent chest tube. She had resolu tion of the pneumothorax and was dismissed from the hospital. She does have stage IV endometriosis and underwent hysterectomy recently. She has her ovaries in place and continues to ovulate. She states that she can tell when she is ovulating and her last ovulation was about 3 to 4 days prior to the development of chest pain. She had some recurrent chest pain and presented to the emergency room. Chest x-ray demonstrated about a 2 cm apical pneumothorax on the right. I discussed the case with the ER and recommended that she be observed for 6 hours with a follow-up chest x-ray and if that was stable she can be dismissed home. She was instead admitted to the hospital. Repeat chest x-ray this morning was performed demonstrating no significant increase in size of the small apical pneumothorax on the right. She is hemodynamically stable and having minimal pain currently. Patient is a lifelong non-smoker. She does have a history of asthma. No history of significant wheezing coughing or shortness of breath. She does not vape or use e-cigarettes or any other inhalational exposures. Allergies Allergy/AdvReac Type Severity Reaction Status Date / Time No Known Allergies Allergy Verified 11/12/23 21:19 Home Medications Medication Instructions Recorded Confirmed Type albuterol 90 mcg-budesonide 80 2 inh inhalation QID PRN Shortness 11/12/23 11/12/23 History mcg/actuation HFA aerosol inhaler Of Breath Or Wheezing fluticasone propionate 50 2 spray intranasal DAILY 11/12/23 11/12/23 History mcg/actuation nasal spray,suspension Patient History Medical History Fibroid uterus Encounter for pre-operative examination Endometrioma of ovary Encounter for cosmetic procedure Mass of right ovary Surgical History Hx of laparoscopy Operative laparoscopy, Laparoscopic myomectomy, Bilateral ovarian cystectomy, Extensive lysis of adhesions, Excision and ablation of endometriosis Status post laser ablation of incompetent vein Family History Grandmother (Paternal) Diabetes Social History Smoking Status: Never smoker Second Hand Exposure: No; Do You Dip or Chew Tobacco: No; Hx Alcohol Use: Yes Alcohol type: beer, wine and hard liquor Hx Substance Use: No Preferred Language: Kiswahili Communication Ability: Effective Psychopaedic Nurse Required: No Beliefs That Will Affect Care: None Current Living Situation: Spouse Feels Safe at Home: Yes Safety Concerns: Feels Safe At This Time Assistive Devices: Glasses Review of Systems Review of Systems: Please refer to hospitalist H&P. No additions or deletions Physical Exam Constitutional: WD/WN, vitals as above Neck: trachea midline, no thyromegaly Respiratory: normal respiratory effort, lungs clear to auscultation Cardiovascular: RRR, no murmur, no edema Gastrointestinal (Abdomen): normal bowel sounds, soft, nontender, no hepatosplenomegaly Musculoskeletal: Extremities: extremities normal to inspection Skin: no rashes, warm and dry Neurologic: Nonfocal exam Lymphatic: no cervical lymphadenopathy Results & Data Results & Data Vital Signs (Past 12 Hours) Vital Signs Temp Pulse Pulse Pulse Resp BP BP 11/13/23 08:14 11/13/23 07:35 36.7 C 77 18 143/84 H 11/13/23 07:15 59 L 11/13/23 02:39 36.8 C 67 16 116/74 11/12/23 23:26 11/12/23 23:18 36.8 C 74 16 131/73 11/12/23 23:11 11/12/23 22:18 73 17 11/12/23 22:15 122/72 11/12/23 22:09 70 16 127/79 11/12/23 21:15 75 17 133/92 11/12/23 21:00 78 18 135/92 Pulse Ox Pulse Ox O2 Del Method O2 Del Method O2 Flow Rate O2 Flow Rate 11/13/23 08:14 Nasal Cannula 2 11/13/23 07:35 99 Nasal Cannula 2 11/13/23 07:15 11/13/23 02:39 99 Nasal Cannula 2.0 11/12/23 23:26 Nasal Cannula 2 11/12/23 23:18 100 Nasal Cannula 2 11/12/23 23:11 100 Nasal Cannula 2 11/12/23 22:18 100 11/12/23 22:15 11/12/23 22:09 99 Nasal Cannula 2 11/12/23 21:15 100 Nasal Cannula 2 11/12/23 21:00 99 Nasal Cannula 2 Critical Care Results & Data Vital Signs (Past 12 Hours) Vital Signs Temp Pulse Pulse Pulse Resp BP BP 11/13/23 08:14 11/13/23 07:35 36.7 C 77 18 143/84 H 11/13/23 07:15 59 L 11/13/23 02:39 36.8 C 67 16 116/74 11/12/23 23:26 11/12/23 23:18 36.8 C 74 16 131/73 11/12/23 23:11 11/12/23 22:18 73 17 11/12/23 22:15 122/72 07/01/24 22:09 70 16 127/79 11/12/23 21:15 75 17 133/92 11/12/23 21:00 78 18 135/92 Pulse Ox Pulse Ox O2 Del Method O2 Del Method O2 Flow Rate O2 Flow Rate 11/13/23 08:14 Nasal Cannula 2 11/13/23 07:35 99 Nasal Cannula 2 11/13/23 07:15 11/13/23 02:39 99 Nasal Cannula 2.0 11/12/23 23:26 Nasal Cannula 2 11/12/23 23:18 100 Nasal Cannula 2 11/12/23 23:11 100 Nasal Cannula 2 11/12/23 22:18 100 11/12/23 22:15 11/12/23 22:09 99 Nasal Cannula 2 11/12/23 21:15 100 Nasal Cannula 2 11/12/23 21:00 99 Nasal Cannula 2 Lab & Micro Results (Past 24 Hours) RBC 4.68 M/uL (4.20-5.40) 11/12/23 WBC 4.54 K/ul (4.8-10.8) L 11/12/23 Hgb 13.3 g/dl (12.0-16.0) 11/12/23 Hct 39.7 % (37.0-47.0) 11/12/23 MCV 84.8 fL (80.0-100.0) 11/12/23 MCH 28.4 pg (25.0-34.0) 11/12/23 MCHC 33.5 g/dL (32.0-36.0) 11/12/23 RDW Standard Deviation 40.5 fL (36.4-46.3) 11/12/23 RDW Coefficient of Variation 13.1 % (11.5-14.5) 11/12/23 Plt Count 202 K/uL (130-400) 11/12/23 MPV 9.9 fL (9.4-12.4) 11/12/23 Neutrophils (%) (Auto) 40.3 % 11/12/23 Lymphocytes (%) (Auto) 43.6 % 11/12/23 Monocytes # (Auto) 0.48 K/uL (0.11-0.59) 11/12/23 Eosinophils # (Auto) 0.16 K/uL (0.00-0.50) 11/12/23 Immature Granulocyte % (Auto) 0.0 % 11/12/23 Neutrophils # (Auto) 1.83 K/uL (1.40-6.50) 11/12/23 Lymphocytes # (Auto) 1.98 K/uL (1.20-3.40) 11/12/23 Monocytes # (Auto) 0.48 K/uL (0.11-0.59) 11/12/23 Eosinophils # (Auto) 0.16 K/uL (0.00-0.50) 11/12/23 Basophils # (Auto) 0.09 K/uL (0.00-0.20) 11/12/23 Immature Granulocyte # (Auto) 0.00 K/uL (0.01-0.20) L 11/11 Na 138 mmol/L (136-145) 11/12/23 K 3.2 mmol/L (3.5-5.1) L 11/12/23 Cl 105 mmol/L (98-107) 11/12/23 CO2 24 mmol/L (21-32) 11/12/23 Anion Gap 9 (3-11) 11/12/23 BUN 7 mg/dl (6-23) 11/12/23 Creatinine 0.64 mg/dl (0.6-1.2) 11/12/23 Estimated GFR ( Amer) 134.9 ml/min 11/12/23 Estimated GFR (Non-Af Amer) 116.4 ml/min 11/12/23 BUN/Creatinine Ratio 10.9 (10-20) 11/12/23 Glu 95 mg/dl (70-99(Fasting)) 11/12/23 Ca 9.5 mg/dl (8.6-10.3) 11/12/23 Total Bilirubin 0.4 mg/dl (0.2-1.0) 11/12/23 AST 14 U/L (13-39) 11/12/23 ALT 8 U/L (7-52) 11/12/23 Alkaline Phosphatase 50 U/L (34-104) 11/12/23 TP 7.9 gm/dl (6.0-8.3) 11/12/23 Albumin 4.8 gm/dl (3.4-5.0) 11/12/23 Globulin 3.1 gm/dl (2.5-4.0) 11/12/23 Albumin/Globulin Ratio 1.5 (0.9-2) 11/12/23 Calcium Level 9.5 mg/dl (8.6-10.3) 11/12/23 18:45 Prothromb Time International Ratio 1.0 (0.9-1.1) 11/12/23 18:4 5 Diagnostic Findings (Past 24 Hours) Chest X-Ray 11/12/23 18:38 XR chest 1V not portable CLINICAL HISTORY: Chest pain, nonspecific TECHNIQUE: Single frontal radiograph of the chest was obtained. Comparison: Comparison is made to chest radiograph 09/14/2023 FINDINGS: No lines and tubes are seen. The cardiomediastinal silhouette is normal. The lungs are clear. Right pneumothorax is seen. IMPRESSION: Right pneumothorax is new from prior exam. ACT 112: Negative or not required by law. Electronically signed by: Rosendo Lawrence M.D. 11/13/2023 7:35 AM Chest X-Ray 11/13/23 07:30 XR chest 1V portable CLINICAL HISTORY: pneumothorax TECHNIQUE: Single frontal radiograph of the chest was obtained. Comparison: Comparison is made to chest radiographs 11/12/2023 FINDINGS: No lines and tubes are seen. The cardiomediastinal silhouette is normal. The lungs are clear. Small right pneumothorax is unchanged. IMPRESSION: Stable small right pneumothorax. ACT 112: Negative or not required by law. Electronically signed by: Rosendo Lawrence M.D. 11/13/2023 7:58 AM I & O Totals 24 Hours 11/12/23 11/13/23 11/14/23 06:59 06:59 06:59 Intake Total 150 / 150 Balance 150 / 150 Cumulative 11/12/23 18:31 thru 11/13/23 05:27 Intake Total 150 Balance 150 RT Ventilator Mngmt (Last Documented) Ventilator Ordered Settings Respiratory Rate 18 11/13/23 07:35 Ventilator - PT Measurements Respiratory Rate 18 PG Care Time/CCT Total # of Minutes Spent Total Time Spent with Patient: Total time spent is greater than 50% in coordination of care (as documented) at patient's floor/unit and/or counseling patient: Coding Level of Care Code 33797 IN/OBS CONSULT LVL 4,60M Diagnoses Spontaneous pneumothorax J93.83
--- OUTSIDE RECORDS SUMMARY | 2023-11-13 09:02 | External Medical Summary | Summary of Care ---
Author Name Unknown Organization [facility] Address [address] [place] [address] Phone [phone] Care Team Providers Care Rotating Equipment Specialist Name Role Phone Shara Steward MD Primary Care Provider [phone] Reason for Visit * Reason Onset Date Comments Hospital Follow-Up 09/17/2023 Encounter Details Date Type Department Care Team (Late st Contact Info) Description 09/17/2023 Telephone Ancillary [facility] [address] [place], [place] [id number] Kenia Burrows RN Hospital Follow-Up Allergies No known active allergiesdocumented as of this encounter (statuses as of 10/31/2023) Medications Medication Sig Dispensed Refills Start Date End Date Status Albuterol Sulfate HFA 108 (90 Base) MCG/ACT Inhalation Aerosol SolutionIndication s:Mild intermittent extrinsic asthma without complication INHALE 2 PUFFS BY MOUTH EVERY 4 HOURS NEEDED FOR WHEEZING 18 g 5 09/19/2022 Active Cetirizine HCl 10 MG Oral Capsule Take 1 Capsule by mouth in the morning. 03/22/2023 Active Fluticasone Propionate 50 MCG/ACT Nasal Suspension (Flonase)Indicatio ns:Allergic sinusitis ADMINISTER 2 SPRAYS IN EACH NOSTRIL IN THE MORNING. 48 mL 2 06/30/2023 Active Doxycycline Hyclate 50 MG Oral Capsule (Vibramycin) Take 1 tablet a day for 10 days with flares. Take with food. 60 Capsule 1 08/01/2023 Discontinue d(Medicatio n List Clean Up) Hospital, Clinic, or Other Facility Administered Medication Ordered Dose Route Frequency Start Date End Date Status Albuterol Sulfate (Proventil) (2.5 MG/3ML) 0.083% inhalation solution 2.5 mgIndications:Mild intermittent extrinsic asthma without complication 2.5 mg NEBULIZER ONCE PRN 03/22/2023 03/21/2024 Active documented as of this encounter (statuses as of 10/31/2023) Active Problems Problem Noted Date Diagnosed Date Intermittent asthma with reliever use up to twic e per week 03/22/2023 Overview: Allergy or infection related Other acne 09/04/2017 Allergic sinusitis 09/04/2017 Extrinsic asthma 09/04/2017 Family history of skin cancer 09/04/2017 documented as of this encounter (statuses as of 10/31/2023) Resolved Problems Problem Noted Date Diagnosed Date Resolved Date Routine medical exam 02/12/2019 021 documented as of this encounter (statuses as of 10/31/2023) Immunizations Name Administration Dates Next Due COVID-19 mRNA, LNP-s, No Pre serve, 2-Dose Series (Classiphix) 09/23/2020,09/02/2020 HPV Vaccine, Bivalent 11/11/2007,01/02/2007,09/12 PPD 09/01/2016 Pneumococcal Polysaccharide PPV23 (Pneumovax) 03/25/2021 TD, Preservative Free 09/01/2016 TDAP (age 10 and older)(Boostrix) 07/31/2005 documented as of this encounter Social History Tobacco Use Types Packs/Day Years Used Date Smoking Tobacco: Never Smokeless Tobacco: Never Alcohol Use Standard Drinks/Week Comments Yes 2 (1 standard drink = 0.6 oz pur e alcohol) PHQ-2 Answer Date Recorded PHQ-2 Score 5 09/16/2018 Utilities Answer Date Recorded Do you have trouble paying y our heating, water, or electric bill? (Adult - for ages 18 years and over) Not on file 10/30/2023 Is your family able to pay t he heat, water, or electric bill? (Household - for ages 0-17 years) Not on file 10/30/2023 Does your family have access to good internet? (Household - for ages 0-17 years) Not on file 10/30/2023 Social Connections Answer Date Recorded How often do you feel lonely or isolated from those around you? (Adult - for ages 18 years and over) Not on file 10/30/2023 Sex and Gender Information Value Date Recorded Sex Assigned at Female 09/16/2018 12:12 PM EDT Gender Identity Female 09/16/2018 12:12 PM EDT Sexual Orientation Straight 09/16/2018 12 :12 PM EDT Job Start Date Occupation Industry Not on file Not on file Not on file documented as of this encounter Miscellaneous Notes * Telephone Encounter - Kenia Burrows RN - 09/17/2023 2:42 PM EDT Transitions of Care Note Reason for Referral:Recent Admission Phone visit for follow up: althea Admitted to: [facility], Date: 09.13.23 Discharged to: home, Date: 09.14.23 Diagnosis driving hospitalization: (1) Asthma: (2) Pneumothorax, right: (3) Endometriosis: S/p chest tube placement on 09/12 with near complete resolution s/p hysterectomy and bilateral salpingectomy on 09/10/23 Source/Contact: Patient SUBJECTIVE Consent: Verbal consent for review of hospital discharge: Yes REVIEW OF SYSTEMS Patient/Other Reports: Current patient/caregiver problems or concerns: doing much better CV: Denies problems Pulmonary: Denies problems Chills/Sweats/Fever:Denies chills/sweats Denies fever Appetite:Denies problems such as nausea, vomiting, burning, decreased appetite Current diet: regular Bowel: denies problems Bladder: denies problems Wound (If applicable): Site-patient states all 3 incisions look fine, declined Pain:Denies Sleep:Denies problems FUNCTIONAL STATUS: ADL'S: Needs Assistance With:N/A as pt is independent IADL'S: Needs Assistance With:N/A as pt is independent Cognitive and Mental Health: denies problems, alert and oriented x 3, and able to communicate, understand instructions, process information. MEDICATION RECONCILIATION Medications: Reports all medications taken as prescribed. OBJECTIVE ASSESSMENT Medication Risk Assessment: No risks identified Did patient fail outpatient treatment? No Discharge instructions available for review? Yes PLAN Symptom Monitoring Interventions:Member/caregiver education - signs and symptoms to contact PrimaryCare (DO NOT DELETE-Three gaston symptoms patient is to report to PCP) 1. sob 2. Chest pain 3. fevers Fast Food ManagerR And D Lab Technician of Care interventions/Action Plan: 5 - 7 day follow-up with PCP in place - Date: 09.24.23 Educated on role of ALTHEA completed with patient/caregiver. Educated patient/caregiver on patient right to have input on ALTHEA plan of care. Verification of Home Health/DME if indicated: NO Identified Care Gaps: Yes Care Gaps closed this call: Safety and self care issues addressed and Transition of Care follow-up communication Re-evaluation of Plan of Care and progress towards goals achievement: Patient education this visit: Verbal, patient to rest, stay hydrated. Patient does have a follow up with blood tester fowl Dr. Hyman on 09/27 Plan to follow-up as previously scheduled, instructed to call Primary Care Provider with change in symptoms or as needed before next follow-up, verbalizes understanding and agrees with plan. Kenia Burrows RN documented in this encounter Plan of Treatment Upcoming Encounters Date Type Department Care Team (Late st Contact Info) Description 02/12/2024 11:00 AM EDT Office Visit Dermatology [facility] [address] [place] [address] Swetha Anthony PA-C [address] [facility] [address] [phone] 03/24/2024 8:40 AM EST Office Visit General Internal Medicine [facility] [address] [place] [address] Shara Steward MD [address] [facility] [address] [place] [phone] Health Maintenance Due Date Last Done Comments HPV/Co-Test 2019 Depression Screening 09/17/2019 09/16/2018 Pneumococcal Vaccine: Pediatrics (0 to 5 Years) and At-Risk Patients (6 to 64 Years) (2 of 2 - PCV) 03/25/2022 03/25/2021 COVID-19 Vaccine ( season) 2023 09/23/2020, 09/02/2020, 08/12/2020 Influenza Vaccine (FLU shot) (Season Ended) 2024 Cervical Cancer Screening 01/28/2024 Pap Smear 01/28/2024 01/27/2021, 02/12/2019 DTaP,Tdap,and Td Vaccines (8 - Td or Tdap) 09/01/2026 09/01/2016, 07/31/2005, 04/17/1994, Additional history exists Hepatitis B Completed 12/22/1992, 07/12, 06/10/1992 GARDASIL-HPV IMMUNIZATION SERIES Completed 11/11/2007, 11/11/2007, 01/02/2007, Additional history exists MENINGOCOCCAL (MENACTRA/MENVEO) Aged Out No longer eligible based on patient's age to complete this topic documented as of this encounter Medical Devices Not on filedocumented as of this encounter Care Teams Rotating Equipment Specialist Relationship Specialty Start Date End Date Shara Steward MD [address] [place] [address] PCP - General Internal Medicine 09/01/16 documented as of this encounter
[2023-11-13] MEDS: POTASSIUM CHLORIDE CRTAB 20 MEQ TABCR PO ONE (10:17)
--- NOTE | 2023-11-13 10:50 | CT Scan Report ---
CT OF THE CHEST WITHOUT IV CONTRAST CLINICAL HISTORY: Pneumothorax, evaluate for structural lung disease. COMPARISON STUDY: Chest radiograph performed earlier today. CT DOSE: 262.35 mGy.cm TECHNIQUE: Axial images of the chest were obtained without IV contrast. Images were reviewed in the axial, sagittal, and coronal planes. IV contrast was not administered for this examination. Automat ed exposure control was utilized for the study. A dose lowering technique was utilized adhering to t he principles of ALARA. FINDINGS: No enlarged axillary, mediastinal or hilar lymph nodes are present. The size of the heart is normal. There is no pleural pericardial effusion. No left pneumothorax is present. There is a smal l right pneumothorax. There is also a small right pleural effusion. Multiple small subpleural pulmona ry nodules measure up to 4 mm. No subpleural bleb is identified to account for the right pneumothorax . There is no evidence for interstitial lung disease. No pulmonary cysts are identified. There are no thoracic spine fractures. No consolidation is identified to suggest pneumonia. Visualized portions o f the upper abdomen are unremarkable on unenhanced exam. IMPRESSION: 1. Small right pneumothorax. Small right pleural effusion. No parenchymal findings within the right l william to account for the spontaneous pneumothorax. 2. Multiple small subpleural pulmonary nodules measuring up to 4 mm. These are likely benign. ACT 112: Negative or not required by law. Electronically signed by: Jonnathan Cummings M.D. 11/13/2023 10:48 AM
--- NOTE | 2023-11-13 12:47 | Hospitalist Progress Note ---
Date of Service November 13, 2023 Assessment & Plan (1) Spontaneous pneumothorax: Plan: 33-year-old female with past medical history significant for allergic sinusitis, asthma, presents with chest pain and found to have right apical pneumothorax. Patient noticed today evening right upper chest and back/shoulder pain which prompted her come to the ER. The pain is more when taking deep breath. No fevers. No cough. No headache. No blurred vision. No runny nose or sore throat. Appetite is okay. Currently on 2 L saturating okay. Resting comfortably. No nausea. No abdominal pain. Normal bowel and bladder movements. Ambulating okay. In September 2023 patient was admitted with chest pain and found to have right-sided pneumothorax. At that time she was s/p chest tube placement with resolution of the pneumothorax. Question of pulmonary endometriosis . Patient followed with pulmonary and there is recommendations to pursue CT chest and likely VATS for pleurodesis and possible pleural biopsies to evaluate for pleural endometriosis if pneumothorax recurs. Recurrent Spontaneous Pneumothorax Pulmonary nodules--Incidental finding. 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 Small right pleural effusion. No pare nchymal findings within the right lung to account for the spontaneous pneumothorax. Multiple small subpleural pulmonary nodules measuring up to 4 mm. These are likely benign. Saturating well on room air Pain is controlled Explained in detail about the risks and complications and precautions. Patient understands and agrees with the plan Needs follow-up with pulmonology/CT surgery on discharge Saturating well on room air Appreciate pulmonology input Plan to be discharged home today Hypokalemia Replace and monitor H/O Endometriosis Follow-up with [employer]ING [employer]PA[employer] as outpatient Allergic sinusitis/Asthma Continue home meds DVT Px: SCDs Code Status Full Code Admission and Anticipated Discharge Date Admission Date: November 12, 2023 Subjective Patient is seen and examined at bedside States having right-sided pleuritic pain, better when compared to yesterday Saturating well on room air Denies any chest pain, nausea, vomiting, abdominal pain, dizziness No other complaints Review of Systems Review of Systems: All systems reviewed & are unremarkable except as noted in Subjective Physical Exam Physical Exam: Physical Exam: Vitals signs as noted above General Appearance:Thin, frail, no apparent distress Head: normocephalic, Atraumatic Eyes: normal inspection, EOMI Neck: supple, Trachea midline Respiratory/Chest: Normal breath sounds, CTA, No accessory muscle use Cardiovascular: S1, S2, No murmur Abdomen/GI:Soft, Non tender, Bowel sounds present Extremities/Musculoskeletal:normal inspection, no edema Neurologic/Psych:AAOX3, grossly no focal neurological deficits Skin: normal color, warm Results & Data Results & Data Vital Signs (Past 12 Hours) Vital Signs Temp Pulse Pulse Pulse Resp BP Pulse Ox 11/13/23 11:19 36.7 C 75 18 115/70 99 11/13/23 08:14 11/13/23 07:35 36.7 C 77 18 143/84 H 99 11/13/23 07:15 59 L 11/13/23 02:39 36.8 C 67 16 116/74 99 O2 Del Method O2 Flow Rate 11/13/23 11:19 Room Air 11/13/23 08:14 Nasal Cannula 2 11/13/23 07:35 Nasal Cannula 2 11/13/23 07:15 11/13/23 02:39 Nasal Cannula 2.0 Laboratory Results Short CBC 11/12/23 Range/Units 18:45 WBC 4.54 L (4.8-10.8) K/ul Hgb 13.3 (12.0-16.0) g/dl Hct 39.7 (37.0-47.0) % Plt Count 202 (130-400) K/uL BMP 11/12/23 18:45 Sodium 138 Potassium 3.2 L Chloride 105 Carbon Dioxide 24 BUN 7 Creatinine 0.64 Glucose 95 Calcium 9.5 Liver Function 11/12/23 Range/Units 18:45 Total Bilirubin 0.4 (0.2-1.0) mg/dl AST 14 (13-39) U/L ALT 8 (7-52) U/L Alkaline Phosphatase 50 (34-104) U/L Albumin 4.8 (3.4-5.0) gm/dl
--- NOTE | 2023-11-13 12:59 | Discharge Summary ---
Date of Service November 13, 2023 Admission HPI Per Admitting Provider 33-year-old female with past medical history significant for allergic sinusitis, asthma, presents with chest pain and found to have right apical pneumothorax. Patient noticed today evening right upper chest and back/shoulder pain which prompted her come to the ER. The pain is more when taking deep breath. No fevers. No cough. No headache. No blurred vision. No runny nose or sore throat. Appetite is okay. Currently on 2 L saturating okay. Resting comfortably. No nausea. No abdominal pain. Normal bowel and bladder movements. Ambulating okay. In September 2023 patient was admitted with chest pain and found to have right-sided pneumothorax. At that time she was s/p chest tube placement with resolution of the pneumothorax. Question of pulmonary endometriosis . Patient followed with pulmonary and there is recommendations to pursue CT chest and likely VATS for pleurodesis and possible pleural biopsies to evaluate for pleural endometriosis if pneumothorax recurs. past medical history. As mentioned above Past surgical history. Dental surgery. Total abdominal hysterectomy. Removal of fibroid uterus tumor. Social history. . No smoking. Alcohol 3 standard drinks of alcohol p er week. No drug use. Family history. Maternal grandmother had cancer. Diabetes. Maternal grandfather had CAD s/p CABG. Admission Exam Per Admitting Provider General- Not in distress. Head- atraumatic Eyes- PERRL. ENT- oropharynx clear Neck- supple, no JVD. Lungs- clear to auscultation no wheezing or crackles. Heart- regular rate and rhythm; no murmur, no gallop. Abdomen- normal bowel sounds, soft, nontender, no distension Extremities- no pretibial edema, no erythema seen. Neuro- alert, oriented PERRL, no facial palsy; no dysarthria; Principal Diagnosis Recurrent Spontaneous Pneumothorax Pulmonary nodules Discharge Data Allergies Allergy/AdvReac Type Severity Reaction Status Date / Time No Known Allergies Allergy Verified 11/12/23 21:19 Consultations 11/12/23 20:12 ED Decision to Admit Stat 11/13/23 08:00 Consult Pulmonology Routine Procedures Performed Laboratory Results WBC 4.54 K/ul (4.8-10.8) L 11/12/23 18:45 RBC 4.68 M/uL (4.20-5.40) 11/12/23 18:45 Hgb 13.3 g/dl (12.0-16.0) 11/12/23 18:45 Hct 39.7 % (37.0-47.0) 11/12/23 18:45 MCV 84.8 fL (80.0-100.0) 11/12/23 18:45 MCH 28.4 pg (25.0-34.0) 11/12/23 18:45 MCHC 33.5 g/dL (32.0-36.0) 11/12/23 18:45 RDW Std Deviation 40.5 fL (36.4-46.3) 11/12/23 18:45 RDW Coeff of Jayla 13.1 % (11.5-14.5) 11/12/23 18:45 Plt Count 202 K/uL (130-400) 11/12/23 18:45 MPV 9.9 fL (9.4-12.4) 11/12/23 18:45 Immature Gran % (Auto) 0.0 % 11/12/23 18:45 Neut % (Auto) 40.3 % 11/12/23 18:45 Lymph % (Auto) 43.6 % 11/12/23 18:45 [place] % (Auto) 10.6 % 11/12/23 18:45 Eos % (Auto) 3.5 % 11/12/23 18:45 Baso % (Auto) 2.0 % 11/12/23 18:45 Neut # (Auto) 1.83 K/uL (1.40-6.50) 11/12/23 18:45 Lymph # (Auto) 1.98 K/uL (1.20-3.40) 11/12/23 18:45 [place] # (Auto) 0.48 K/uL (0.11-0.59) 11/12/23 18:45 Eos # (Auto) 0.16 K/uL (0.00-0.50) 11/12/23 18:45 Baso # (Auto) 0.09 K/uL (0.00-0.20) 11/12/23 18:45 Immature Gran # (Auto) 0.00 K/uL (0.01-0.20) L 11/12/23 18:45 PT 11.2 Seconds (9.0-12.0) 11/12/23 18:45 INR 1.0 (0.9-1.1) 11/12/23 18:45 APTT 25 Seconds (21-31) 11/12/23 18:45 PTT Ratio 0.9 11/12/23 18:45 Sodium 138 mmol/L (136-145) 11/12/23 18:45 Potassium 3.2 mmol/L (3.5-5.1) L 11/12/23 18:45 Chloride 105 mmol/L (98-107) 11/12/23 18:45 Carbon Dioxide 24 mmol/L (21-32) 11/12/23 18:45 Anion Gap 9 (3-11) 11/12/23 18:45 BUN 7 mg/dl (6-23) 11/12/23 18:45 Creatinine 0.64 mg/dl (0.6-1.2) 11/12/23 18:45 Est Cr Clr Drug Dosing 113.6 ml/min 11/12/23 18:45 Est GFR ( Amer) 134.9 ml/min 11/12/23 18:45 Est GFR (Non-Af Amer) 116.4 ml/min 11/12/23 18:45 BUN/Creatinine Ratio 10.9 (10-20) 11/12/23 18:45 Glucose 95 mg/dl (70-99(Fasting)) 11/12/23 18:45 Calcium 9.5 mg/dl (8.6-10.3) 11/12/23 18:45 Total Bilirubin 0.4 mg/dl (0.2-1.0) 11/12/23 18:45 AST 14 U/L (13-39) 11/12/23 18:45 ALT 8 U/L (7-52) 11/12/23 18:45 Alkaline Phosphatase 50 U/L (34-104) 11/12/23 18:45 Troponin I High Sens < 2.3 pg/ml (0-14) 11/12/23 18:45 Total Protein 7.9 gm/dl (6.0-8.3) 11/12/23 18:45 Albumin 4.8 gm/dl (3.4-5.0) 11/12/23 18:45 Globulin 3.1 gm/dl (2.5-4.0) 07/01/24 18:45 Albumin/Globulin Ratio 1.5 (0.9-2) 11/12/23 18:45 Impressions Chest X-Ray 11/13/23 07:30 XR chest 1V portable CLINICAL HISTORY: pneumothorax TECHNIQUE: Single frontal radiograph of the chest was obtained. Comparison: Comparison is made to chest radiographs 11/12/2023 FINDINGS: No lines and tubes are seen. The cardiomediastinal silhouette is normal. The lungs are clear. Small right pneumothorax is unchanged. IMPRESSION: Stable small right pneumothorax. ACT 112: Negative or not required by law. Electronically signed by: Rosendo Lawrence M.D. 11/13/2023 7:[address] 11/13/23 08:44 CT OF THE CHEST WITHOUT IV CONTRAST CLINICAL HISTORY: Pneumothorax, evaluate for structural lung disease. COMPARISON STUDY: Chest radiograph performed earlier today. CT DOSE: 262.35 mGy.cm TECHNIQUE: Axial images of the chest were obtained without IV contrast. Images were reviewed in the axial, sagittal, and coronal planes. IV contrast was not administered for this examination. Automated exposure control was utilized for the study. A dose lowering technique was utilized adhering to the principles of ALARA. FINDINGS: No enlarged axillary, mediastinal or hilar lymph nodes are present. The size of the heart is normal. There is no pleural pericardial effusion. No left pneumothorax is present. There is a small right pneumothorax. There is also a small right pleural effusion. Multiple small subpleural pulmonary nodules measure up to 4 mm. No subpleural bleb is identified to account for the right pneumothorax. There is no evidence for interstitial lung disease. No pulmonary cysts are identified. There are no thoracic spine fractures. No consolidation is identified to suggest pneumonia. Visualized portions of the upper abdomen are unremarkable on unenhanced exam. IMPRESSION: 1. Small right pneumothorax. Small right pleural effusion. No parenchymal findings within the right lung to account for the spontaneous pneumothorax. 2. Multiple small subpleural pulmonary nodules measuring up to 4 mm. These are likely benign. ACT 112: Negative or not required by law. Electronically signed by: Jonnathan Cummings M.D. 11/13/2023 10:48 AM Ordered Studies 11/13/23 08:44 CT chest diagnostic wo con Routine Hospital Course (1) Spontaneous pneumothorax: 33-year-old female with past medical history significant for allergic sinusitis, asthma, presents with chest pain and found to have right apical pneumothorax. Patient noticed today evening right upper chest and back/shoulder pain which prompted her come to the ER. The pain is more when taking deep breath. No fevers. No cough. No headache. No blurred vision. No runny nose or sore throat. Appetite is okay. Currently on 2 L saturating okay. Resting comfortably. No nausea. No abdominal pain. Normal bowel and bladder movements. Ambulating okay. In September 2023 patient was admitted with chest pain and found to have right-sided pneumothorax. At that time she was s/p chest tube placement with resolution of the pneumothorax. Question of pulmonary endometriosis . Patient followed with pulmonary and there is recommendations to pursue CT chest and likely VATS for pleurodesis and possible pleural biopsies to evaluate for pleural endometriosis if pneumothorax recurs. Recurrent Spontaneous Pneumothorax Pulmonary nodules--Incidental finding. 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 Small right pleural effusion. No parenchymal findings within the right lung to account for the spontaneous pneumothorax. Multiple small subpleural pulmonary nodules measuring up to 4 mm. These are likely benign. Saturating well on room air Pain is controlled Explained in detail about the risks and complications and precautions. Patient understands and agrees with the plan Needs follow-up with pulmonology/CT surgery on discharge Saturating well on room air Appreciate pulmonology input Plan to be discharged home today Hypokalemia Replace and monitor H/O Endometriosis Follow-up with UTILITY MANAGER as outpatient Allergic sinusitis/Asthma Continue home meds DVT Px: SCDs Code Status Full Code Total Time Total Time Spent Total Time Spent (In Minutes): 53 minutes Discharge Plan Discharge Items Patient Disposition: Home - Self-Care Reason For Visit: PNEUMOTHORAX Discharge Diagnosis: Recurrent Spontaneous Pneumothorax Pulmonary nodules Activity: Per Instructions section Exercise/Sports: Wait until after follow-up appointment Non-emergency contact: Primary Care Provider, [facility] [employer] Call non-emergency contact if: you have any medication questions, your symptoms worsen, your pain is concerning for you and you have a fever Follow-up/Referrals: Shara Steward MD [Primary Care Provider] - Diet: Regular Addtl Attending Provider Instructions: Follow-up with your primary care physician in 1 week Follow up with your CT surgeon as soon as possible for possible video-assisted thoracoscopic evaluation for pleural endometriosis and pleurodesis as recommended by your air traffic control specialist center Seek immediate medical attention if your symptoms reoccur or worsen Please take all medications as instructed on discharge list below. Please call if you have any questions or problems. You can reach a [facility] hospitalist on duty at [facility] 24 hours a day by calling [phone] Pending Studies at Discharge: No Stand-Alone Forms: My [facility], Smoking Cessation Medications and DC Order Prescriptions: Continued fluticasone propionate 50 mcg/actuation spray,suspension 2 spray INTRANASAL DAILY albuterol-budesonide 90-80 mcg/actuation Hfa Aerosol Inhaler 2 inh INHALATION QID PRN (Reason: Shortness Of Breath Or Wheezing) Discharge Orders: Discharge Order (Routine); Ordered 11/13/23 Ordered By: Demarco Rios Admission Data Admit Date/Time: 11/12/23 21:32 Attending Provider: Demarco Rios Admit Provider: Lyndon Laguna Primary Care Provider: Shara Steward Other Providers: Lyndon Laguna; Jose Enrique Nieto
--- NOTE | 2023-11-14 06:21 | Electrocardiogram Report ---
Test Reason : Blood Pressure : / mmHG Vent. Rate : 096 BPM Atrial Rate : 096 BPM P-R Int : 134 ms QRS Dur : 098 ms QT Int : 354 ms P-R-T Axes : 075 068 058 degrees QTc Int : 447 ms Normal sinus rhythm Normal ECG When compared with ECG of 13-SEP-2023 08:41, No significant change was found Confirmed by Emiliano Hathaway ([id number]) on 11/14/2023 6:21:24 AM Referred By: Confirmed By:Emiliano Hathaway
== END 2023-11-13 14:03 | disposition home or self-care (01) | DRG 201 ==
LOC: ED 18:31 → 2S 21:32